=== PATIENT | female | born 1995 | race Caucasian/White ===

== ENCOUNTER 2018-05-03 09:30 | Emergency (ER) | payer OTHER ==
[2018-05-03 09:47] VITALS: BP 123/82
[2018-05-03] MEDS ORDERED: Ibuprofen TAB* 600 MG PO ONE (09:53)
--- NOTE | 2018-05-03 09:57 | UC ---
Dental HPI - HPI Summary HPI Summary: 23 yo F c/o R upper tooth pain for several days. tooth has turned black. sometimes drains blood if she pushes on it. no facial swelling or fevers. no breakage of tooth. able to eat w/o difficulty. took 500 mg tylenol this morning with moderate pain relief. family hx noncontributory - History of Current Complaint Chief Complaint: UCDentalProblem Stated Complaint: DENTAL PAIN Time Seen by Provider: 05/03/18 09:46 Hx Last Menstrual Period: 04/28/18 Pain Intensity: 7 - Allergies/Home Medications Allergies/Adverse Reactions: Allergies Allergy/AdvReac Type Severity Reaction Status Date / Time No Known Allergies Allergy Verified 05/03/18 09:40 Home Medications: Home Medications Acetaminophen [Acetaminophen Extra Strength] 500 mg PO ONCE 05/03/18 [History Confirmed 05/03/18] Norethindrone-E.estradiol-Iron [Loestrin Fe 07/21 1-20 mg-Mcg] 1 tab PO DAILY 08/19 [History Confirmed 05/03/18] PMH/Surg Hx/FS Hx/Imm Hx - Surgical History Surgical History: Yes Surgery Procedure, Year, and Place: LT KNEE - TORN MENISCUS 2012, REMOVED CYST FROM TAILBONE TAILBONE - Social History Alcohol Use: None Substance Use Type: None Smoking Status (MU): Light Every Day Tobacco Smoker Type: Cigarettes Amount Used/How Often: 1/2 PK DAILY Review of Systems ENT: Dental Pain All Other Systems Reviewed And Are Negative: Yes Physical Exam Triage Information Reviewed: Yes Appearance: Well-Appearing, No Pain Distress, Well-Nourished Vital Signs: Initial Vital Signs Temp 99 F 05/03/18 09:42 Pulse 94 05/03/18 09:42 Resp 18 05/03/18 09:42 BP 123/82 05/03/18 09:42 Pulse Ox 99 05/03/18 09:42 Vital Signs Reviewed: Yes Eyes: Positive: Conjunctiva Clear ENT: Positive: Pharynx normal, Dental tenderness - R upper posterior 2nd molar. Negative: Pharyngeal erythema, Nasal congestion Respiratory: Positive: No respiratory distress, No accessory muscle use Neurological: Positive: Alert, Muscle Tone Normal Psychological: Positive: Normal Response To Family, Age Appropriate Behavior Dental Complaint Course/Dx - Course Course Of Treatment: given ibuprofen - Differential Dx/Diagnosis Provider Diagnoses: dental caries Discharge - Sign-Out/Discharge Documenting (check all that apply): Patient Departure All imaging exams completed and their final reports reviewed: No Studies - Discharge Plan Condition: Stable Disposition: HOME Prescriptions: Penicillin VK TAB* [Penicillin VK 250 mg Tab*] 500 mg PO BID 7 Days #14 tab Patient Education Materials: Toothache (ED) Referrals: Pia Brooke NP [Primary Care Provider] - - Billing Disposition and Condition Condition: STABLE Disposition: Home
== END 2018-05-03 10:08 | disposition home or self-care (01) ==
LOC: UCEAST 09:30
DX: K02.9 Dental caries, unspecified (principal); F17.210 Nicotine dependence, cigarettes, uncomplicated
CPT/HCPCS: 99212; G0463

== ENCOUNTER 2018-05-26 17:26 | Emergency (ER) | payer OTHER ==
--- NOTE | 2018-05-26 17:51 | ED ---
HPI Chest Pain - HPI Summary HPI Summary: This patient is a 23 year old F brought in by EMS from [facility] to [facility] with a chief complaint of intermittent chest burning for over a month that was worse this morning. The patient rates the pain 3/10 in severity. Symptoms aggravated by drinking coffee. Symptoms alleviated by cold compresses. Pt has an appointment with here PCP but was googling sx tonight and became worried. [facility] saw EKG changes and suggested she come here. Not worse with exertion, movement , or inspiration. No cardiac hx. On amoxicillin for toothache Pt is on an oral contraceptive. - History of Current Complaint Chief Complaint: EDChestWallPain Time Seen by Provider: 05/26/18 17:42 Hx Obtained From: Patient Hx Last Menstrual Period: 05/25/18 Onset/Duration: Started Weeks Ago - more than 4, Still Present Timing: Intermittent Initial Severity: Mild Current Severity: Mild Pain Intensity: 3 Pain Scale Used: 0-10 Numeric Chest Pain Location: Diffuse Character: Burning Aggravating Factor(s): Other: - coffee Alleviating Factor(s): Other: - cold compress - Allergy/Home Medications Allergies/Adverse Reactions: Allergies Allergy/AdvReac Type Severity Reaction Status Date / Time No Known Allergies Allergy Verified 05/26/18 16:14 PMH/Surg Hx/FS Hx/Imm Hx Endocrine/Hematology History: Denies: Hx Diabetes, Hx Unexplained Bleeding, Hx Coagulopothy Cardiovascular History: Denies: Hx Angioplasty, Hx Cardiac Arrest, Hx Congestive Heart Failure, Hx Deep Vein Thrombosis Sensory History: Reports: Hx Contacts or Glasses Opthamlomology History: Reports: Hx Contacts or Glasses - Surgical History Surgery Procedure, Year, and Place: LT KNEE - TORN MENISCUS 2013, REMOVED CYST FROM TAILBONE TAILBONE Infectious Disease History: No Infectious Disease History: Denies: Traveled Outside the [place] in Last 30 Days - Family History Known Family History: Positive: None - Pt denies FMHX Negative: Renal Disease, Respiratory Disease, Seizure Disorder - Social History Lives: With Family Alcohol Use: Rare Substance Use Type: Reports: None Smoking Status (MU): Light Every Day Tobacco Smoker Type: Cigarettes Amount Used/How Often: 1/2 PK DAILY Review of Systems Negative: Fever Positive: Chest Pain All Other Systems Reviewed And Are Negative: Yes Physical Exam - Summary Physical Exam Summary: Appearance: Well appearing, no pain distress Skin: warm, dry, reflects adequate perfusion Head/face: normal Eyes: EOMI, VALERIO ENT: normal Neck: supple, non-tender Respiratory: CTA, breath sounds present Cardiovascular: RRR, pulses symmetrical Abdomen: non-tender, soft Musculoskeletal: normal, strength/ROM intact Neuro: normal, sensory motor intact, A&Ox3 Triage Information Reviewed: Yes Vital Signs On Initial Exam: Initial Vitals Temp Pulse Resp BP Pulse Ox 99.4 F 112 16 130/65 98 05/26/18 17:33 05/26/18 17:33 05/26/18 17:33 05/26/18 17:33 05/26/18 17:33 Vital Signs Reviewed: Yes Diagnostics - Vital Signs Vital Signs Temp Pulse Resp BP Pulse Ox 05/26/18 17:36 105 20 130/85 98 05/26/18 17:33 99.4 F 112 16 130/65 98 - Laboratory Result Diagrams: 05/26/18 18:04 05/26/18 18:04 Lab Statement: Any lab studies that have been ordered have been reviewed, and results considered in the medical decision making process. - Radiology CXR Radiology Interpretation Completed By: ED Physician Summary of Radiographic Findings: no acute disease. Pending official report. - EKG 1822 Cardiac Rate: NL EKG Rhythm: Sinus Rhythm - at 93 BPM Summary of EKG Findings: No acute changes Chest Pain Course/Dx - Course Assessment/Plan: This patient is a 23 year old F brought in by EMS from [facility] to [facility] with a chief complaint of intermittent chest burning for over a month that was worse this morning. An EKG reveals NSR. CXR reveals, no acute disease. Pending official report. Bloodwork obtained. Patient will be discharged with prescription for motrin and follow up from PCP. The patient is agreeable with this plan. - Chest Pain Differential Diagnosis/HQI/PQRI: Chest Wall, Lower Respiratory Infection - Diagnoses Provider Diagnoses: Atypical chest pain Discharge - Sign-Out/Discharge Documenting (check all that apply): Patient Departure - Discharge Plan Condition: Stable Disposition: HOME Prescriptions: Ibuprofen TAB* [Motrin TAB* 600 MG] 600 mg PO Q8H PRN #15 tab MDD 3 PRN Reason: Pain Patient Education Materials: Chest Pain (ED) Referrals: Pia Brooke NP [Primary Care Provider] - Additional Instructions: Follow up with your primary care physician in 1-3 days. RETURN TO THE EMERGENCY DEPARTMENT FOR CHANGING OR WORSENING SYMPTOMS. - Billing Disposition and Condition Condition: STABLE Disposition: Home - Attestation Statements Document Initiated by Stephanie: Yes Documenting Scribe: Ignacio Poole Provider For Whom Emilioe is Documenting (Include Credential): Jesus Wright MD Scribe Attestation: Ignacio Ruff , scribed for Jesus Wright MD on 05/26/18 at 1902. Scribe Documentation Reviewed: Yes Provider Attestation: The documentation as recorded by the Igancio bear accurately reflects the service I personally performed and the decisions made by me, Jesus Wright MD
[2018-05-26 18:16] LABS: ABS Basophils 0 10^3/ul (0-0.2); ABS Eosinophils 0 10^3/ul (0-0.6); ABS Monocytes 0.2 10^3/ul (0-0.8); ABS Neutrophils 7.1 10^3/ul (1.5-7.7); ABS Nucleated RBC 0 10^3/ul; Eosinophil % 0.2 % (0-6); Hematocrit 44 % (35-47); Hemoglobin 15.3 g/dl (12.0-16.0); Lymphocyte % 11.9 % (25-47); Mean Corpuscular HGB Conc 35 g/dl (31-36); Mean Corpuscular Hemoglobin 32 pg (27-31); Mean Corpuscular Volume 92 fL (80-97); Mean Platelet Volume 9.3 fL (7.4-10.4); Nucleated Red Blood Cells % 0; Platelet Count 144 10^3/ul (150-450); Red Blood Count 4.77 10^6/ul (4.00-5.40); Red Cell Distribution Width 13 % (10.5-15); White Blood Count 8.4 10^3/ul (3.5-10.8)
[2018-05-26 18:34] LABS: EGFR Non-African American 99.5 (>60)
[2018-05-26 18:54] VITALS: BP 125/81
== END 2018-05-26 18:54 | disposition home or self-care (01) ==
LOC: ED 17:26
DX: R07.89 Other chest pain (principal); F17.210 Nicotine dependence, cigarettes, uncomplicated
CPT/HCPCS: 36415; 71046; 80053; 84484; 85025; 85379; 85610; 85730; 93005; 99282

== ENCOUNTER 2018-05-28 18:25 | Emergency (ER) | payer OTHER ==
--- OUTSIDE RECORDS SUMMARY | 2018-05-28 18:36 | XMS REPORT | Continuity of Care Document ---
:1995 External Reference #:[id number] Author Name Pia Brooke N.P. Address [address] [place] [id number] Care Team Providers Name Role Phone Pia Brooke N.P. Care Team Information Recreational Director Unavailable Payers Type Date Identification Numbers Payment Provider Subscriber Effective: 2016 Policy Number: [id number] [facility] Bridgett Spears PayID: [id number] [address] [place] [address] PayID: [id number] [facility] Bridgett Spears [address] [place] [address] Effective: 2014 Policy Number: [id number] Medicaid ### >11 Bridgett Spears Expires: 2016 PayID: [id number] [address] [place] [address] Advance Directives Description No Information Available Problems Date Description Provider Status Onset: 08/25/2016 Cyst of ovary Pia Brooke N.PDereck Active Onset: 08/14/2017 Tobacco user Pia Brooke [place] Active Family History Date Family Member(s) Problem(s) Comments Father Good Health Mother Good Health Maternal Uncles pilonidal cyst remval Social History Type Date Description Comments Sex Unknown Lives With Boyfriend 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 2018 Fluconazole 02/26/ Hx Tablets 150mg 2tabs 1 by mouth Edwardo, 2018 - every day Mashelle, 05/27/ x 1 and N.P. 2018 repeat in 5 days x 1 Tramadol HCL 11/01/ Hx Tablets 50mg 24tabs 1 by mouth Edwardo, 2016 - every 6-8h Mashelle, 08/25/ as needed N.P. 2017 pain Zithromax Z-True 04/20/ Hx Tablets 250mg 1tabs as Edwardo, 2014 - directed Mashelle, 11/01/ N.P. 2015 Cheratussin ac 04/20/ Hx Syrup 100-10mg/5 236ml 1 teaspoon Edwardo, 2014 - ML every 4-6 Mashelle, 11/01/ h as N.P. 2016 needed cough Work Note 04/20/ Hx no work Edwardo, 2014 - today for Mashelle, 11/01/ medical N.P. 2016 reasons Azithromycin 11/07/ Hx Tablets 250mg 6tabs 2 po day Edwardo, 2013 - one then 1 Mashelle, 04/08/ po qd x 4 N.P. 2013 days Cheratussin ac 11/07/ Hx Syrup 100-10mg/5 236ml 1 teaspoon Edwardo, 2013 - ML every 4-6 Mashelle, 04/08/ h prn N.P. 2013 cough Work Note Hx no work Edwardo, 2013 - 11/07/13-5/ Mashelle, for N.P. 2013 medical reasons Ibuprofen 01/09/ Hx Tablets 600mg 30tabs 1 po qid Edwardo, 2012 - with food Mashelle, 04/08/ N.P. 2013 Bactrim DS 08/13/ Hx Tablets 800-160mg 10tabs 1 po bid x Edwardo, 2012 - 5 days Mashelle, 11/07/ N.P. 2014 Hydrocodone/Kirk 05/29/ Hx Tablets 5-325mg 24tabs 1 po q Edwardo, taminophen 2011 - 4-6h prn Mashelle, 11/07/ pain N.P. 2013 Acetaminophen/C 02/19/ Hx Tablets 300-30mg 12tabs 1-2 po q Edwardo, odeine #3 2011 - 4-6 hours Mashelle, 05/28/ prn pain N.P. 2011 Ortho Evra 11/21/ Hx Patches 150-20mcg/ 18unit apply Edwardo, 2011 - Weekly 24HR s patch Mashelle, 02/15/ every week N.P. 2011 as directed for Metronidazole 08/24/ Hx Tablets 500mg 14tabs 1 po bid x Edwardo, 2011 - 7 days Mashelle, 02/15/ N.P. 2011 Diflucan 08/24/ Hx Tablets 100mg 11tabs 2 tabs day Edwardo, 2011 - one then 1 Mashelle, 02/15/ po q day x N.P. 2011 10 days Clindamycin HCL 08/01/ Hx Capsules 300mg 28caps 1 po q 6 h Edwardo, 2011 - x 7 days Mashelle, 08/11/ N.P. 2011 School Note Hx patient Edwardo, 2010 - was seen maria r, in our N.P. 2012 office today for medical reasons Metrogel-Vagina 10/14/ Hx Gel 0.75% 70G one appl deb Brooke 2010 - per vagina Mashelle, 08/01/ qhs x 5d N.P. 2011 Apri 06/09/ Hx Tablets 0.15-30mg- 28tabs 1 po qd Edwardo, 2009 - mcg Mashelle, 02/15/ N.P. 2011 Aviane 04/25/ Hx Tablets 0.1-20mg-m 1pack 1 po qd Edwardo, 2009 - cg Mashelle, 06/09/ N.P. 2009 Keflex 04/25/ Hx Capsules 500mg 28caps 1 po qid x Edwardo, 2009 - 7 days Mashelle, 09/30/ N.P. 2010 Tylenol/Codeine 04/25/ Hx Tablets 300-30mg 24tabs 1 -2 po q Edwardo, #3 2009 - 4-6 hours Mashelle, 09/30/ prn pain N.P. 2010 School Note 04/25/ Hx no sports Edwardo, 2009 - or gym for Mashelle, 09/30/ 2 weeks N.P. 2010 Medications Administered in Office Medication Date Status Form Strength Qnty SIG Indications Ordering Provider PPD Administered Injection Edwardo, 1 Jodie Palacio Immunizations CPT Code Status Date Vaccine Lot # [id number] Given 01/15/2018 Tdap (Adacel) Ages 7 And Above Only [id number] Given 01/15/2018 Tdap (Adacel) Ages 7 And Above Only 40416 Given 04/08/2014 Afluria Or Fluvirin Flu Vac Intramuscular [id number] 63890 Given 02/15/2007 Tdap (Adacel) Ages 7 And Above Only [id number] 94481 Given 02/15/2007 HPV Vaccine (Gardasil) 3 Dose Schedule [id number] 19653 Given 11/22/1998 IPV / Poliomyelitis Immunization 75449 Given 11/22/1998 MMR Virus Immunization 20284 Given 11/22/1998 DTP Immunization 06300 Given 02/04/1996 Hib ACTHiB Vaccine 4 Dose Schedule 82348 Given 02/04/1996 DTP Immunization 42973 Given 02/09/1995 Hepatitis B Vac Ped/Adolescent 3 Dose Schedule 23514 Given 02/03/1995 MMR Virus Immunization 42335 Given 1994 IPV / Poliomyelitis Immunization 10684 Given 1994 DTP Immunization 04753 Given 1994 Hib ACTHiB Vaccine 4 Dose Schedule 28386 Given 1994 Hepatitis B Vac Ped/Adolescent 3 Dose Schedule 38619 Given 1994 IPV / Poliomyelitis Immunization 19935 Given 1994 DTP Immunization 24355 Given 1994 Hib ACTHiB Vaccine 4 Dose Schedule 13529 Given 1994 Hepatitis B Vac Ped/Adolescent 3 Dose Schedule 97691 Given 1994 IPV / Poliomyelitis Immunization 99432 Given 1994 DTP Immunization 08734 Given 1994 Hib ACTHiB Vaccine 4 Dose Schedule 56880 Refused 04/21/2018 HPV Vaccine (Gardasil) 3 Dose Schedule 45108 Refused 04/21/2018 Influenza Vac, 3 Yrs & Older, Quadrivalent, Split, Im Use Vital Signs Date Vital Result Comment 05/27/2018 11:23am Body Temperature 98.6 F Weight 115.00 lb Heart Rate 111 /min BP Systolic 120 mmHg BP Diastolic 86 mmHg O2 % BldC Oximetry 98 % 05/20/2018 8:00am Body Temperature 99.3 F Weight 119.50 lb Heart Rate 99 /min BP Systolic 98 mmHg BP Diastolic 62 mmHg O2 % BldC Oximetry 97 % 02/26/2018 12:03pm Body Temperature 99.0 F Weight 107.00 lb Heart Rate 96 /min BP Systolic 102 mmHg BP Diastolic 71 mmHg O2 % BldC Oximetry 99 % 02/21/2018 10:04am Body Temperature 98.1 F Weight 107.25 lb Heart Rate 98 /min BP Systolic 93 mmHg BP Diastolic 72 mmHg Height 65 inches 5'5" O2 % BldC Oximetry 99 % BMI (Body Mass Index) 17.8 kg/m2 02/11/2018 11:37am Body Temperature 98.4 F Weight 109.00 lb Heart Rate 87 /min BP Systolic 103 mmHg BP Diastolic 74 mmHg O2 % BldC Oximetry 99 % 01/15/2018 1:36pm Body Temperature 99.0 F Weight 113.50 lb Heart Rate 76 /min BP Systolic 116 mmHg BP Diastolic 77 mmHg O2 % BldC Oximetry 99 % 11/09/2017 10:19am Body Temperature 98.8 F Weight 113.00 lb Heart Rate 88 /min BP Systolic 114 mmHg BP Diastolic 82 mmHg Height 65 inches 5'5" O2 % BldC Oximetry 98 % BMI (Body Mass Index) 18.8 kg/m2 08/14/2017 11:13am Body Temperature 98.8 F Weight 115.00 lb Heart Rate 85 /min BP Systolic 124 mmHg BP Diastolic 78 mmHg O2 % BldC Oximetry 98 % 08/25/2016 9:49am Body Temperature 98.2 F Weight 113.00 lb Heart Rate 96 /min BP Systolic 117 mmHg BP Diastolic 84 mmHg Height 65 inches 5'5" O2 % BldC Oximetry 97 % BMI (Body Mass Index) 18.8 kg/m2 12/22/2015 8:13am Body Temperature 98.8 F Weight 114.00 lb Heart Rate 97 /min BP Systolic 108 mmHg BP Diastolic 69 mmHg O2 % BldC Oximetry 99 % 11/23/2015 8:30am Body Temperature 98.8 F Weight 112.50 lb Heart Rate 88 /min BP Systolic 112 mmHg BP Diastolic 78 mmHg O2 % BldC Oximetry 99 % 11/02/2015 11:20am Body Temperature 99.0 F Weight 113.38 lb Heart Rate 107 /min BP Systolic 115 mmHg BP Diastolic 70 mmHg O2 % BldC Oximetry 99 % 04/20/2015 10:46am Body Temperature 98.6 F Weight 112.12 lb Heart Rate 104 /min BP Systolic 117 mmHg BP Diastolic 76 mmHg O2 % BldC Oximetry 98 % 04/08/2014 10:54am Body Temperature 98.3 F Weight 118.12 lb Heart Rate 90 /min BP Systolic 108 mmHg BP Diastolic 66 mmHg 11/07/2013 10:43am Body Temperature 98.4 F Weight 119.00 lb Heart Rate 110 /min BP Systolic 72 mmHg O2 % BldC Oximetry 97 % 06/03/2013 8:15am Body Temperature 96.3 F Weight 124.50 lb Heart Rate 110 /min BP Systolic 102 mmHg BP Diastolic 68 mmHg O2 % BldC Oximetry 99 % 01/09/2013 2:05pm Body Temperature 96.4 F Weight 122.00 lb Weight Percentile 42nd Heart Rate 99 /min BP Systolic 100 mmHg BP Diastolic 60 mmHg O2 % BldC Oximetry 96 % 08/13/2012 12:53pm Body Temperature 98.3 F Weight 130.00 lb Weight Percentile 60th Heart Rate 120 /min BP Systolic 100 mmHg BP Diastolic 60 mmHg O2 % BldC Oximetry 98 % 06/28/2012 11:27am Body Temperature 97.7 F Weight 132.00 lb Weight Percentile 64th Heart Rate 78 /min BP Systolic 102 mmHg BP Diastolic 62 mmHg O2 % BldC Oximetry 99 % 05/28/2012 2:08pm Body Temperature 98.0 F Weight 126.50 lb Weight Percentile 54th Heart Rate 93 /min BP Systolic 104 mmHg BP Diastolic 68 mmHg O2 % BldC Oximetry 99 % 02/16/2012 10:53am Body Temperature 98.2 F Weight 126.50 lb Weight Percentile 56th Heart Rate 97 /min BP Systolic 104 mmHg BP Diastolic 62 mmHg O2 % BldC Oximetry 99 % 11/22/2011 3:23pm Body Temperature 97.8 F Weight 140.00 lb Weight Percentile 76th Heart Rate 97 /min BP Systolic 130 mmHg BP Diastolic 70 mmHg O2 % BldC Oximetry 99 % 08/21/2011 8:18am Body Temperature 98.0 F Weight 142.25 lb Weight Percentile 79th Heart Rate 94 /min BP Systolic 105 mmHg BP Diastolic 64 mmHg O2 % BldC Oximetry 99 % 08/11/2011 8:43am Body Temperature 98.7 F Weight 145.50 lb Weight Percentile 82nd Heart Rate 94 /min BP Systolic 110 mmHg BP Diastolic 65 mmHg O2 % BldC Oximetry 99 % 08/01/2011 8:15am Body Temperature 96.4 F Weight 141.00 lb Weight Percentile 78th Heart Rate 99 /min BP Systolic 116 mmHg BP Diastolic 77 mmHg 05/11/2011 9:10am Body Temperature 97.6 F Weight 136.00 lb Weight Percentile 73rd Heart Rate 100 /min BP Systolic 111 mmHg BP Diastolic 69 mmHg O2 % BldC Oximetry 95 % 05/01/2011 8:53am Body Temperature 98.2 F Weight 146.00 lb Weight Percentile 83rd Heart Rate 87 /min O2 % BldC Oximetry 99 % 04/14/2011 8:29am Body Temperature 98.1 F Weight 146.00 lb Weight Percentile 83rd Heart Rate 95 /min BP Systolic 100 mmHg BP Diastolic 70 mmHg O2 % BldC Oximetry 95 % 04/04/2011 8:40am Body Temperature 98.2 F Weight 145.00 lb Weight Percentile 82nd Heart Rate 100 /min BP Systolic 110 mmHg BP Diastolic 60 mmHg O2 % BldC Oximetry 93 % 03/24/2011 8:42am Body Temperature 97.4 F Weight 146.00 lb Weight Percentile 83rd Heart Rate 107 /min BP Systolic 104 mmHg BP Diastolic 64 mmHg O2 % BldC Oximetry 98 % 03/20/2011 8:25am Body Temperature 98.2 F Weight 144.00 lb Weight Percentile 81st BP Systolic 100 mmHg BP Diastolic 70 mmHg Height 65 inches 5'5" Height Percentile 63 % O2 % BldC Oximetry 96 % BMI (Body Mass Index) 24.0 kg/m2 Body Mass Index Percentile 79 % 03/15/2011 2:59pm Body Temperature 98.2 F Weight 146.00 lb Weight Percentile 83rd Heart Rate 107 /min BP Systolic 102 mmHg BP Diastolic 60 mmHg O2 % BldC Oximetry 97 % 09/30/2010 11:10am Weight 136.00 lb Weight Percentile 75th Heart Rate 80 /min BP Systolic 104 mmHg BP Diastolic 70 mmHg Respiratory Rate 20 /min Height 63 inches 5'3" Height Percentile 33 % O2 % BldC Oximetry 97 % BMI (Body Mass Index) 24.1 kg/m2 Body Mass Index Percentile 81 % 04/27/2010 12:27pm Body Temperature 98.6 F Weight 140.00 lb Weight Percentile 80th Heart Rate 103 /min BP Systolic 102 mmHg BP Diastolic 70 mmHg Respiratory Rate 20 /min O2 % BldC Oximetry 95 % 04/25/2010 11:01am Body Temperature 98.4 F Weight 140.00 lb Weight Percentile 80th Heart Rate 118 /min BP Systolic 100 mmHg BP Diastolic 60 mmHg Respiratory Rate 20 /min O2 % BldC Oximetry 99 % Results Test Date Facility Test Result H/L Range Note Laboratory test [facility] TSH 1.57 uIU/mL 0.35-4.94 1 finding 8 Laboratory test [facility] Urine Microbiology res 2 finding 8 Culture <SEE NOTE> Comprehensive Met [facility] Sodium 138 mmol/L 135-146 3, 4 Panel-FCMG 8 Potassium 4.2 mmol/L 3.5-5.2 Chloride# 106 mmol/L 97-110 5 Carbon Dioxide 22 mmol/L Low 24-34 Glucose 92 mg/dL 70-105 BUN 6 mg/dL 6-26 Creatinine 0.6 mg/dL 0.5-1.4 Calcium 8.9 mg/dL 8.5-10.2 Total Protein 6.4 g/dL 6.0-8.0 Albumin 4.1 g/dL 3.6-4.9 Globulin 2.3 g/dL 2.0-3.5 A/G Ratio 1.8 Ratio 1.0-2.2 Total Bilirubin 0.3 mg/dL 0.1-1.3 Alkaline Phosphatase 43 U/L 24-140 Alt 6 U/L 3-42 Ast 9 U/L 8-42 Beatris Egfr >60 >60 6 Non Beatris Egfr >60 >60 7 Anion Gap 10 mmol/L 5-15 8 CBC with Auto Diff-fcmg 02/11/2018 [facility] WBC 7.6 K/uL 4.1-11.0 RBC 3.77 M/uL Low 4.00-5.40 Hemoglobin 11.9 gm/dL Low 12.0-16.0 Hematocrit 34.3 % Low 36.0-47.0 MCV 90.9 fL 80.0-97.0 MCH 31.6 pg 27.0-32.0 MCHC 34.7 g/dL 32.0-36.0 RDW 12.9 % 11.5-14.5 PLT Count 293 K/ul 140-400 MPV 8.9 FL 7.1-10.7 Neutrophil 71.1 % 35.0-75.0 Lymphocyte 19.7 % 16.0-52.0 Monocyte 7.7 % 2.0-10.0 Eosinophil 0.8 % 0.0-5.0 Basophil 0.7 % 0.0-4.0 Abs Neutrophils 5.4 K/uL 2.1-8.0 Abs Lymphocytes 1.5 K/uL 0.8-5.5 Abs Monocytes 0.6 K/uL 0.1-1.0 Abs Eosinophils 0.1 K/uL 0.0-0.5 Abs Basophils 0.1 K/uL 0.0-0.3 Laboratory test 02/11/2018 [facility] Magnesium 2.2 mg/dL 1.5-2.7 finding Protime 02/03/2018 [facility] Protime 15.6 seconds High 12.0-14.4 9 (315)- - Inr 1.2 High 0.9-1.1 10 Laboratory test 02/03/2018 [facility] Act Partial 27.0 seconds N 23.4-35.0 finding (315)- - Thrombo Time Aot Request 02/03/2018 [facility] Aot Request Test(s) added 11 (315)- - Tests to be added: crp Basic Metabolic Panel 02/03/2018 [facility] Glucose 130 mg/dL High 74-106 (315)- - BUN 4 mg/dL Low 7-18 Creatinine 0.6 mg/dL N 0.6-1.3 Glom Filtration Rate, Estimate >60 mL/min >60 If >60 mL/min >60 12 BUN/Creat 6.6 ratio Sodium 143 mmol/L N 136-145 Potassium 3.4 mmol/L Low 3.5-5.1 Chloride 112 mmol/L High 98-107 Carbon Dioxide 23 mmol/L N 21-32 Anion Gap 8 mEq/L N 8-16 Calcium 7.9 mg/dL Low 8.5-10.1 Laboratory test 02/03/2018 [facility] Magnesium 1.7 mg/ dL Low 1.8-2.4 finding (315)- - C-Reactive Protein,Quant 6.2 mg/L High <3.0 CBC 02/03/2018 [facility] White Blood Count 12.2 K/uL High 3.1-10.7 (315)- - Red Blood Count 3.50 M/uL Low 3.90-5.40 Hemoglobin 11.3 gm/dL Low 11.6-15.8 Hematocrit 32.3 % Low 36.0-46.1 Mean Cell Volume 92.3 fl N 80.9-99.0 Mean Corpuscular HGB 32.3 pg N 25.9-32.7 Mean Corpuscular HGB Conc 35.0 g/dL High 30.8-34.3 Platelet Count 113 K/uL Low 155-360 Red Cell Distri Width %CV 12.3 % N 11.7-14.4 Mean Platelet Volume 11.6 fL N 8.9-12.4 Lactic Acid 02/02/2018 [facility] Lactic Acid 0.9 mmol/L N 0.4-1.9 (315)- - Lab Reflex >2.0 for Sepsis? Y Aot Request 02/02/2018 [facility] Aot Request Test(s) added 13 (315)- - Tests to be added: CRP Laboratory test 02/01/2018 [facility] Urine Culture NO GROWTH: 14 finding (315)- - FINAL <SEE NOTE> Urinalysis With 02/01/2018 [facility] Urine Color YELLOW Yellow 15 Microscopic (315)- - Urine Clarity SL CLOUDY Clear Urine Glucose - Dipstick NEGATIVE mg/dL Negative Urine Bilirubin - Dipstick NEGATIVE Negative Urine Ketone NEGATIVE mg/dL Negative Urine Specific [place] 1.025 N 1.010-1.030 Urine Blood NEGATIVE Negative Urine PH 6.0 Low 6.5-7.5 Urine Protein - Dipstick NEGATIVE mg/dL Negative Urine Urobilinogen - Dipstick 0.2 E.U./dL N 0.2-1.0 Urine Nitrite - Dipstick NEGATIVE Negative Urine Leuk Esterase MODERATE Abnormal Negative Urine RBC 0-2 rbc/hpf 0-2 Urine WBC 20-30 wbc/hpf High 0-7 Urine Epithelial Cells MANY /lpf None Seen 16 Urine Bacteria MODERATE Abnormal None Seen Urine Amorph Sediment SMALL Negative Source: URINE, CLEAN CAT <SEE NOTE> 17 Laboratory test finding 02/01/2018 [facility] Lipase 207 U/L N 56-289 (315)- - HCG,Serum (Qualitative) NEGATIVE (Negative) 18 C-Reactive Protein,Quant < 2.9 mg/L <3.0 Comprehensive Metabolic 02/01/2018 [facility] Glucose 122 mg/dL High 74-106 Panel (315)- - BUN 8 mg/dL N 7-18 Creatinine 0.8 mg/dL N 0.6-1.3 Glom Filtration Rate, Estimate >60 mL/min >60 If >60 mL/min >60 19 BUN/Creat 10.0 ratio Sodium 143 mmol/L N 136-145 Potassium 3.5 mmol/L N 3.5-5.1 Chloride 110 mmol/L High 98-107 Carbon Dioxide 26 mmol/L N 21-32 Anion Gap 7 mEq/L Low 8-16 Calcium 9.0 mg/dL N 8.5-10.1 Total Protein 7.5 g/dL N 6.4-8.2 Albumin 4.2 g/dL N 3.4-5.0 Globulin 3.3 g/dL N 1.9-4.3 Alb/Glob 1.3 ratio Bilirubin,Total 0.2 mg/dL N 0.2-1.0 Sgot/Ast 11 U/L Low 15-37 20 SGPT/Alt 14 U/L N 12-78 Alkaline Phosphatase 52 U/L N 45-117 CBS W/Automated 02/01/2018 [facility] White Blood 11.6 K/ uL High 3.1-10.7 Diff (315)- - Count Red Blood Count 4.79 M/uL N 3.90-5.40 Hemoglobin 15.5 gm/dL N 11.6-15.8 Hematocrit 43.2 % N 36.0-46.1 Mean Cell Volume 90.2 fl N 80.9-99.0 Mean Corpuscular HGB 32.4 pg N 25.9-32.7 Mean Corpuscular HGB Conc 35.9 g/dL High 30.8-34.3 Platelet Count 161 K/uL N 155-360 Red Cell Distri Width SD 40.6 fl N 3-47 Red Cell Distri Width %CV 12.5 % N 11.7-14.4 Mean Platelet Volume 11.1 fL N 8.9-12.4 Neut% 58.9 % N 40.4-72.8 Lymph % 32.7 % N 20.0-42.0 [place] % 6.5 % N 4.3-13.2 Eo% 1.6 % N 0.0-6.6 Bas% 0.3 % N 0.0-1.1 Neut# 6.83 K/uL N 1.8-7.0 Lymph # 3.79 K/uL N 1.0-4.0 [place] # 0.75 K/uL N 0.3-0.9 Eos # 0.19 K/uL N 0.0-0.5 Baso # 0.03 K/uL N 0.0-0.1 CBS W/Automated Diff 08/06/2017 [facility] White Blood 7.2 K/uL N 3.1-10.7 21 (315)- - Count Red Blood Count 4.60 M/uL N 3.90-5.40 Hemoglobin 15.1 gm/dL N 11.6-15.8 Hematocrit 41.7 % N 36.0-46.1 Mean Cell Volume 90.7 fl N 80.9-99.0 Mean Corpuscular HGB 32.8 pg High 25.9-32.7 Mean Corpuscular HGB Conc 36.2 g/dL High 30.8-34.3 Platelet Count 112 K/uL Low 155-360 Red Cell Distri Width SD 41.9 fl N 3-47 Red Cell Distri Width %CV 12.8 % N 11.7-14.4 Mean Platelet Volume 11.1 fL N 8.9-12.4 Neut% 68.9 % N 40.4-72.8 Lymph % 22.6 % N 20.0-42.0 [place] % 6.7 % N 4.3-13.2 Eo% 1.5 % N 0.0-6.6 Bas% 0.3 % N 0.0-1.1 Neut# 4.93 K/uL N 1.8-7.0 Lymph # 1.62 K/uL N 1.0-4.0 [place] # 0.48 K/uL N 0.3-0.9 Eos # 0.11 K/uL N 0.0-0.5 Baso # 0.02 K/uL N 0.0-0.1 Comprehensive Metabolic 08/06/2017 [facility] Glucose 93 mg/dL N 74-106 Panel (315)- - BUN 11 mg/dL N 7-18 Creatinine 0.8 mg/dL N 0.6-1.3 Glom Filtration Rate, Estimate >60 mL/min >60 If >60 mL/min >60 22 BUN/Creat 13.7 ratio Sodium 140 mmol/L N 136-145 Potassium 3.5 mmol/L N 3.5-5.1 Chloride 110 mmol/L High 98-107 Carbon Dioxide 23 mmol/L N 21-32 Anion Gap 7 mEq/L Low 8-16 Calcium 8.7 mg/dL N 8.5-10.1 Total Protein 7.2 g/dL N 6.4-8.2 Albumin 4.1 g/dL N 3.4-5.0 Globulin 3.1 g/dL N 1.9-4.3 Alb/Glob 1.3 ratio Bilirubin,Total 0.3 mg/dL N 0.2-1.0 Sgot/Ast 5 U/L Low 15-37 23 SGPT/Alt 15 U/L N 12-78 Alkaline Phosphatase 49 U/L N 45-117 Laboratory test finding 08/06/2017 [facility] Lipase 163 U/L N 56-289 (315)- - HCG,Serum (Qualitative) NEGATIVE (Negative) 24 Urinalysis With 08/06/2017 [facility] Urine Color YELLOW Yellow Microscopic (315)- - Urine Clarity SL CLOUDY Clear Urine Glucose - Dipstick NEGATIVE mg/dL Negative Urine Bilirubin - Dipstick NEGATIVE Negative Urine Ketone NEGATIVE mg/dL Negative Urine Specific [place] >=1.030 N 1.010-1.030 Urine Blood NEGATIVE Negative Urine PH 5.5 Low 6.5-7.5 Urine Protein - Dipstick NEGATIVE mg/dL Negative Urine Urobilinogen - Dipstick 0.2 E.U./dL N 0.2-1.0 Urine Nitrite - Dipstick NEGATIVE Negative Urine Leuk Esterase TRACE Abnormal Negative Urine RBC NONE SEEN rbc/hpf 0-2 Urine WBC 10-20 wbc/hpf High 0-7 Urine Epithelial Cells MANY /lpf None Seen 25 Urine Mucus SMALL None Seen Source: URINE, CLEAN CAT <SEE NOTE> 26 Urine Culture 08/06/2017 [facility] Urine Culture URETHRAL JONELLE (315)- - Quantity 10,000 - 50,000 <SEE NOTE> 27 C Diff Toxin B/PCR-RL 08/28/2016 [facility] Specimen Description STOOL C Diff Toxin B NEGATIVE (Neg) 027 Nap1 B1 NEGATIVE (Neg) Comment NOTE: IF REFLEX <SEE NOTE> 28 Crypto/Giard Antigen 08/28/2016 [facility] Crypto/Giard Antigen SEE NOTE 29 Stool Panel 08/28/2016 [facility] Enteric Pathogens By PCR SEE NOTE 30 Giard/Cryptosp Exam SEE NOTE 31 Lactoferrin,Fecal NEGATIVE (Neg) 32 Laboratory test 11/02/2015 [facility] Urine Microbiology res 33 finding Culture <SEE NOTE> Urine HCG 07/24/2014 [facility] Urine HCG NEGATIVE Negative 34 (Qualitative) (315)- - (Qualitative ) Laboratory test 06/03/2013 [facility] Urine Microbiology res 35 finding Culture <SEE NOTE> Urine Culture 03/15/2013 [facility] Urine See Note 36 (315)- - Culture Urine Screen 03/15/2013 [facility] Urine Screen See Note 37 (315)- - Urine HCG 03/15/2013 [facility] Urine HCG NEGATIVE Negative 38 (Qualitative) (315)- - (Qualitative ) Urinalysis With 03/15/2013 [facility] Urine Color YELLOW Yellow Microscopic (315)- - Urine Clarity CLEAR Clear Urine Glucose - Dipstick NEGATIVE mg/dL Negative Urine Bilirubin - Dipstick NEGATIVE Negative Urine Ketone NEGATIVE mg/dL Negative Urine Specific [place] <=1.005 Low 1.010-1.030 Urine Blood TRACE Negative Urine PH 5.5 Low 6.5-7.5 Urine Protein - Dipstick NEGATIVE mg/dL Negative Urine Urobilinogen - Dipstick 0.2 E.U./dL 0.2-1.0 Urine Nitrite - Dipstick NEGATIVE Negative Urine Leuk Esterase MODERATE High Negative Urine RBC 0-2 rbc/hpf 0-7 Urine WBC 30-50 wbc/hpf High 0-7 Urine Epithelial Cells FEW NONESEEN/lpf Urine Bacteria FEW NONESEEN Laboratory test 03/15/2013 [facility] Culture If See Note 39 finding (315)- - Indicated Comment Laboratory test 01/09/2013 [facility] Urine Culture Microbiology res 40 finding <SEE NOTE> Laboratory test 08/13/2012 [facility] Urine Culture Microbiology res 41 finding <SEE NOTE> Liver Function 05/26/2012 [facility] Total Protein 7.0 g/ dL 6.3-8 Tests (315)- - .0 Albumin 3.7 g/dL 3.5-5.0 Globulin 3.3 g/dL 1.9-4.3 Alb/Glob 1.1 ratio Bilirubin,Total 0.2 mg/dL 0.2-1.2 Bilirubin,Direct < 0.1 mg/dL Low 0.1-0.4 Bilirubin,Indirect 0.1 mg/dL 0.0-0.9 Sgot/Ast 10 U/L Low 16-40 SGPT/Alt 18 U/L Low 30-65 Alkaline Phosphatase 67 U/L 50-136 Basic Metabolic Panel 05/26/2012 [facility] Glucose 98 mg /dL 76-115 (315)- - BUN 12 mg/dL 5-23 Creatinine 0.9 mg/dL 0.5-1.4 Glom Filtration Rate, Estimate >60 mL/min >60 If >60 mL/min >60 42 BUN/Creat 13.3 ratio Sodium 142 mmol/L 136-145 Potassium 3.6 mmol/L 3.5-5.1 Chloride 110 mmol/L High 98-107 Carbon Dioxide 24 mEq/L 18-29 Anion Gap 12 mEq/L 8-16 Calcium 9.0 mg/dL 8.5-10.1 Laboratory test 05/26/2012 [facility] Lipase 123 U/L 28-380 finding (315)- - CBC W/Automated 05/26/2012 [facility] White Blood 7.8 K/ uL 3.1-10.7 Diff (315)- - Count Red Blood Count 4.50 M/uL 3.90-5.40 Hemoglobin 14.4 gm/dL 11.6-15.8 Hematocrit 39.8 % 36.0-46.1 Mean Cell Volume 88.4 fl 80.9-99.0 Mean Corpuscular HGB 32.0 pg 25.9-32.7 Mean Corpuscular HGB Conc 36.2 g/dL High 30.8-34.3 Platelet Count 131 K/uL Low 155-360 Red Cell Distri Width SD 38.7 fl 3-47 Red Cell Distri Width %CV 12.1 % 11.7-14.4 Mean Platelet Volume 11.3 fL 8.9-12.4 Neut% 68.6 % High 28.0-68.0 Lymph % 23.9 % 17.0-46.1 [place] % 5.8 % 4.3-13.2 Eo% 1.4 % 0.0-6.6 Bas% 0.3 % 0.0-1.1 Neut# 5.37 K/uL 1.0-7.0 Lymph # 1.87 K/uL 0.8-3.4 [place] # 0.45 K/uL 0.0-0.6 Eos # 0.11 K/uL 0.0-0.5 Baso # 0.02 K/uL 0.0-0.1 Laboratory test 05/26/2012 [facility] Urine HCG NEGATIVE Negative 43 finding (315)- - (Qualitative) Urine Screen 05/26/2012 [facility] Urine Color YELLOW Yellow (315)- - Urine Clarity CLEAR Clear Urine Glucose - Dipstick NEGATIVE mg/dL Negative Urine Bilirubin - Dipstick NEGATIVE Negative Urine Ketone NEGATIVE mg/dL Negative Urine Specific [place] 1.010 1.010-1.030 Urine Blood NEGATIVE Negative Urine PH 8.0 High 6.5-7.5 Urine Protein - Dipstick NEGATIVE mg/dL Negative Urine Urobilinogen - Dipstick 0.2 E.U./dL 0.2-1.0 Urine Nitrite - Dipstick NEGATIVE Negative Urine Leuk Esterase NEGATIVE Negative Affirm 08/21/2011 [facility] Trichomonas Vaginalis Negative Negative Gardnerella Vaginalis Positive Abnormal Negative Марина Species Positive Abnormal Negative Laboratory test finding 08/01/2011 [facility] Pap SEE NOTE 44 Laboratory test finding 08/01/2011 [facility] GC by Dna Probe NEGATIVE Negative Urine Culture Microbiology res <SEE NOTE> 45 Affirm 08/01/2011 [facility] Trichomonas Vaginalis Negative Negative Gardnerella Vaginalis Positive Abnormal Negative Марина Species Negative Negative Laboratory test 03/20/2011 [facility] Rubella Igg AB 39.6 IU/mL 46, 47 finding Laboratory test 03/20/2011 [facility] Measles Igg AB 1.99 ELFA 48 finding Laboratory test 09/30/2010 [facility] 49 finding [phone] Allia <SEE NOTE> Affirm 09/30/2010 [facility] Trichomonas Negative Negative Vaginalis Gardnerella Vaginalis Positive Abnormal Negative Марина Species Negative Negative Laboratory test finding 09/30/2010 [facility] GC by Dna Probe NEGATIVE Negative Urine Culture Microbiology res <SEE NOTE> 50 Laboratory test finding 09/30/2010 [facility] Pap SEE NOTE 51 HPV Negative Negative 52 Wound Culture - 04/25/2010 [facility] (Do not Use) Wound Culture - (SEE NOTE) 53 [place] [facility] [place] [address] [phone] Specimen Description - LA N/A Special Requests - LA N/A Result - LA N/A Report Status - LA N/A 1 This sample is drawn by:dayna/[email or web address] 2 Microbiology results SOURCE Random urine FINAL RESULT No growth 3 This sample is drawn by:kait/[email or web address] 4 Updated reference range on new analyzer 5 Updated reference range on new analyzer 6 Concerning GFR Guidelines for Americans: Normal function or mild renal disease, if clinically at risk: >/=60 mL/min Moderately decreased: 30-59 Severely decreased: 15-29 Renal failure: <15 7 Concerning GFR Guidelines: Normal function or mild renal disease, if clinically at risk: >/=60 mL/min Moderately decreased: 30-59 Severely decreased: 15-29 Renal failure: <15 Glomerular Filtration Rate (GFR) is estimated based on the MDRD equation, which assumes a steady state for creatinine as recommended by the National Kidney Disease Education Program in conjunction with the National Institutes of Health and the National Kidney Foundation. Clinical conditions in which it may be necessary to measure GFR by using clearance methods include extremes of age and body size, severe malnutrition or obesity, diseases of skeletal muscle, paraplegia or quadriplegia, vegetarian diet, rapidly changing kidney function, and calculation of the dose of potentially toxic drugs that are excreted by the kidneys. 8 Updated Reference Range 9 ABDOM PAIN, UTI 10 THERAPEUTIC INR RANGE: 2.0 - 3.0 DVT, Pulmonary embolus, prophylaxis against venous thrombosis or systemic embolization in high risk patients. 2.5 - 3.5 Mechanical heart valves 11 Tests: crp Instructions: 12 Note: Persistent reduction for 3 months or more in an eGFR <60 mL/min/1.73 m2 defines CKD. Patients with eGFR values >/=60 mL/min/1.73 m2 may also have CKD if evidence of persistent proteinuria is present. The original MDRD equation for estimated GFR is not valid for patients less than 18 years of age. Additional information may be found at [email or web address]. 13 Tests: CRP Instructions: 14 NO GROWTH: FINAL REPORT 15 SEVERE ABD PAIN L SIDE 16 POSSIBLE UROGENITAL CONTAMINATION. 17 URINE, CLEAN CATCH 18 Method: Quidel QuickVue One-Step Immunoassay 19 Note: Persistent reduction for 3 months or more in an eGFR <60 mL/min/1.73 m2 defines CKD. Patients with eGFR values >/=60 mL/min/1.73 m2 may also have CKD if evidence of persistent proteinuria is present. The original MDRD equation for estimated GFR is not valid for patients less than 18 years of age. Additional information may be found at [email or web address]. 20 Values below the stated reference ranges of AST and ALT can be seen in normal populations. Clinical correlation is suggested. 21 RIGHT SIDE PAIN 22 Note: Persistent reduction for 3 months or more in an eGFR <60 mL/min/1.73 m2 defines CKD. Patients with eGFR values >/=60 mL/min/1.73 m2 may also have CKD if evidence of persistent proteinuria is present. The original MDRD equation for estimated GFR is not valid for patients less than 18 years of age. Additional information may be found at [email or web address]. 23 Values below the stated reference ranges of AST and ALT can be seen in normal populations. Clinical correlation is suggested. 24 Method: Quidel QuickVue One-Step Immunoassay 25 POSSIBLE UROGENITAL CONTAMINATION. 26 URINE, CLEAN CATCH 27 10,000 - 50,000 CFU/mL 28 NOTE: IF REFLEX CULTURE FOR KLEBSIELLA OXYTOCA IS CLINICALLY INDICATED, PLEASE CONTACT THE MICROBIOLOGY LABORATORY ([phone]) WITHIN 3 DAYS OF THIS REPORT. Unless otherwise specified, testing [place] [address] 29 SPECIMEN DESCRIPTION STOOL SPECIAL REQUESTS NONE RESULT NEGATIVE FOR GIARDIA ANTIGEN BY IMMUNOASSAY NEGATIVE FOR CRYPTOSPORIDIUM ANTIGEN BY IMMUNOAS SAY REPORT STATUS FINAL 08/29/2016 Unless otherwise specified, testing performed by [facility] [email or web address] [address] 30 SPECIMEN DESCRIPTION STOOL SPECIAL REQUESTS NONE RESULT NEGATIVE FOR ENTERIC PATHOGENS BY PCR. NOTE: THIS MOLECULAR ASSAY DETECTS THE FOLLOWING ENTERIC PATHOGENS: CAMPYLOBACTER GROUP (COLI, JEJUNI, JOE), SALMONELLA SPECIES, SHIGELLA SPECIES (DYSENTERIAE, BOYDII, SONNEI, FLEXNERI), VIBRIO GROUP (CHOLERAE, PARAHAEMOLYTICUS), YERSINIA ENTEROCOLITICA, SHIGA TOXIN 1, SHIGA TOXIN 2, NOROVIRUS GROUP 1 AND 2, ROTAVIRUS A. REPORT STATUS FINAL 08/29/2016 Unless otherwise specified, testing performed by [facility] [place] [address] 31 SPECIMEN DESCRIPTION STOOL SPECIAL REQUESTS NONE RESULT NEGATIVE FOR GIARDIA BY DFA NEGATIVE FOR CRYPTOSPORIDIUM BY DFA STOOL SPECIMEN SCREENED FOR THE PRESENCE OF GIARDIA LAMBLIA AND CRYPTOSPORIDIUM PARVUM ONLY. FOR PATIENTS FROM OR WITH A HISTORY OF TRAVEL TO A DEVELOPING COUNTRY, OR WHO HAVE PERSISTANT SYMPTOMS AND/OR ARE IMMUNOCOMPROMISED, CALL MICROBIOLOGY TO REQUEST THE REFLEX TEST OAP FOR A COMPREHENSIVE MICROSCOPIC EXAMINATION. SPECIMENS ARE SAVED IN FIXATIVE AND HELD FOR 7 DAYS FROM THE REPORT DATE TO ALLOW THESE TESTS TO BE ADDED ON. REPORT STATUS FINAL 08/29/2016 Unless otherwise specified, testing performed by [facility] [address] [place] [id number] [address] PERFORMED AT [address] [place] [address] Unless otherwise specified, testing performed by [facility] [address] [place] [id number] 33 Microbiology results SOURCE MIDU FINAL RESULT No growth 34 FIRST MORNING SPECIMENS GENERALLY CONTAIN THE HIGHEST CONCENTRATION OF HCG AND ARE RECOMMENDED FOR EARLY DETECTION OF . 35 Microbiology results SOURCE MIDU FINAL RESULT No growth 36 COLONY COUNT ! 50,000 - 60,000 CFU/ml Organism 1 ! STAPHYLOCOCCUS SAPROPHYTICUS QUANTITY ! MODERATE RECOMMENDED THERAPY: ! ORAL CEPHALOSPORINS OR AMOXICILLIN/CLAV STAPHYLOCOCCUS SAPROPHYTICUS Target Route Dose M.I.C. RX AB COST ------ ----- -------- ------ -- ------ PENICILLIN G >=0.5 R OXACILLIN >=4 R * TETRACYCLINE <=1 S NITROFURANTOIN <=16 S TRIMETHOPRIM/SULFAMETHOXAZOLE BLOOD PO DS <=10 S 0.39 AMOXICILLIN R CEFAZOLIN R GENTAMICIN <=0.5 S CIPROFLOXACIN <=0.5 S MOXIFLOXACIN <=0.25 S LEVOFLOXACIN 0.5 S CEFACLOR R CEFUROXIME R PIPERACILLIN R CEFTRIAXONE R VANCOMYCIN 1 S 37 03/15/13 LAB.[email or web address] Deleted by Reflex Group [facility] 38 FIRST MORNING SPECIMENS GENERALLY CONTAIN THE HIGHEST CONCENTRATION OF HCG AND ARE RECOMMENDED FOR EARLY DETECTION OF . 39 CULTURE TO FOLLOW 40 Microbiology results SOURCE MIDU FINAL RESULT No growth 41 Microbiology results SOURCE MIDU FINAL RESULT No growth 42 Note: Persistent reduction for 3 months or more in an eGFR <60 mL/min/1.73 m2 defines CKD. Patients with eGFR values >/=60 mL/min/1.73 m2 may also have CKD if evidence of persistent proteinuria is present. The original MDRD equation for estimated GFR is not valid for patients less than 18 years of age. Additional information may be found at [email or web address]. 43 FIRST MORNING SPECIMENS GENERALLY CONTAIN THE HIGHEST CONCENTRATION OF HCG AND ARE RECOMMENDED FOR EARLY DETECTION OF . 44 [facility] [employer] [facility]. [address] [place] [address] GYNECOLOGIC CYTOLOGY REPORT Accession Number: [id number] Source of Specimen(s): A: SurePath Vaginal/ Cervical/ Endocervical Pap Smear - One Vial Clinical Diagnosis and History: Date of Last Menstrual Period: None Provided Other Clinical Conditions: REFLEX TO DIGENE HPV ASSAY IF RESULTS OF THIS PAP ARE ASCUS Specimen Adequacy Satisfactory for evaluation Presence of endocervical/transformation zone component General Categorization Negative for intraepithelial lesion or malignancy Interpretation NEGATIVE FOR INTRAEPITHELIAL LESION OR MALIGNANCY Reported: 08/04/2011 Electronically Signed Out By Salima MOJICA(ASCP) [facility] dss Unless otherwise specified, [place] [address] 45 Microbiology results SOURCE MIDU RESULT No growth 46 This sample is drawn by:KD/MUD CLEANER OPERATOR 47 RUBELLA INTERPRETATION: NEGATIVE <10.0 IU/ML BORDERLINE 10.0 - 14.9 IU/ML POSITIVE > OR=15.0 IU/ML VALUES OF 15.0 IU/ML OR GREATER INDICATE IMMUNIZATION OR PAST INFECTION. BORDERLINE RESULTS ARE CONFIRMED. THE MAGNITUDE OF THE REPORTED IGG LEVEL CANNOT BE CORRELATED TO AN ENDPOINT TITER. Unless otherwise specified, testing performed by [facility] [employer] [facility] [address] [address] 48 MEASLES INTERPRETATION: NEGATIVE <0.50 ELFA UNITS BORDERLINE 0.50 - 0.69 ELFA UNITS LOW LEVEL 0.70 - 1.90 ELFA UNITS MED. LEVEL 1.91 - 2.70 ELFA UNITS HIGH LEVEL >2.70 ELFA UNITS VALUES OF 0.70 OR GREATER INDICATE IMMUNIZATION OR PAST INFECTION. BORDERLINE RESULTS ARE CONFIRMED IN DUPLICATE. Unless otherwise specified, testing performed by [employer] [facility] [address] [address] [address] [place] [address] [employer]ene Hybrid Capture II HPV Test Accession Number [id number] Specimen(s) Received A: Digene SP Vaginal/ Cervical/ Endocervical Pap Smear - One Vial Other Case Numbers: [id number] Diagnosis RISK GROUPS HPV TYPES RESULTS High Risk (16, 18, 31, 33, 35, 39, 45, 51, 52, 56, 58, 59, 68) NEGATIVE Comments The performance characteristics of the SurePath cell pellet specimen tested for this assay were validated by [employer] [facility] and licensed for use by the [facility]. This test has not been licensed by the FDA and the result is not intended to be used as the sole means for clinical diagnosis or patient management. Negative results do not rule out the presence of disease. Reported: 10/05/2010 15:44 Electronically Signed Out By Jaimie Zarate ssa 50 Microbiology results SOURCE MIDU RESULT No Growth 51 [employer] [facility]. [address] [place] [address] GYNECOLOGIC CYTOLOGY REPORT Accession Number: [id number] Source of Specimen(s): A: SurePath Vaginal/ Cervical/ Endocervical Pap Smear - One Vial Clinical Diagnosis and History: Date of Last Menstrual Period: None Provided Other Clinical Conditions: DIGENE HPV ASSAY REQUESTED Specimen Adequacy Satisfactory for evaluation Presence of endocervical/transformation zone component General Categorization Negative for intraepithelial lesion or malignancy Interpretation NEGATIVE FOR INTRAEPITHELIAL LESION OR MALIGNANCY Acute inflammatory cells Recommendations HPV testing will be performed via Digene Hybrid Capture II and a separate report will be issued. Reported: 10/05/2010 Electronically Signed Out By Catarina MOJICA(ASCP) [facility] Unless otherwise specified, testing performed by [employer] [place] [address] [place] [address] 52 Unless otherwise specified, testing performed by [facility] [employer] [facility]. [address] [place] [address] 53 SPECIMEN DESCRIPTION BUTTOCKS SPECIAL REQUESTS NONE GRAM STAIN MODERATE (10 TO 25/LPF) WHITE BLOOD CELLS NO EPITHELIAL CELLS MODERATE (5 TO 10/OIF) GRAM POSITIVE COCCI FEW (1 TO 5/OIF) GRAM NEGATIVE RODS CULTURE RESULTS NO GROWTH REPORT STATUS FINAL 04/27/2010 Unless otherwise specified, testing performed by [facility] [employer] [facility] [place] [address] [place] [address] Procedures Date Code Description Status 02/21/2018 63727 Physical Performance Test Or Measurement W/Report, Each 15 Completed Min 04/20/2015 46773 Measure Blood Oxygen Level Single Determination Completed 11/07/2013 58291 Measure Blood Oxygen Level Single Determination Completed 05/11/2011 14435 Destruction Benign Lesions Other Than Skin Tags Up To 14 Completed Lesions 05/01/2011 54021 Destruction Benign Lesions Other Than Skin Tags Up To 14 Completed Lesions 04/14/2011 57702 Destruction Benign Lesions Other Than Skin Tags Up To 14 Completed Lesions 04/04/2011 46904 Destruction Benign Lesions Other Than Skin Tags Up To 14 Completed Lesions 03/24/2011 29582 Destruction Benign Lesions Other Than Skin Tags Up To 14 Completed Lesions 04/25/2010 54201 I & D Pilonidal Cyst Simple Completed Encounters Type Date Location Provider Dx Diagnosis Office Visit 05/20/2018 Pia Kevin, R51 Headache 8:00a N.P. Office Visit 02/26/2018 Pia Kevin, N30.90 Cystitis, unspecified 11:45a N.P. without hematuria N76.0 Acute vaginitis Office Visit 02/21/2018 10:00a Pia Kevin, Z00.00 Encntr for general N.P. adult medical exam w/o abnormal findings Z68.1 Body mass index (BMI) 19.9 or less, adult Office Visit 02/11/2018 11:30a Pia Kevin, R79.9 Abnormal finding of N.P. blood chemistry, unspecified N83.201 Unspecified ovarian cyst, RIGHT side R10.32 LEFT lower quadrant pain Office Visit 01/15/2018 1:40p Pia Kevin, S01.01xA Laceration without N.P. foreign body of scalp, initial encounter Z23 Encounter for immunization Office Visit 11/09/2017 10:30a Pia Kevin, Z02.89 Encounter for other N.P. administrative examinations Z68.1 Body mass index (BMI) 19.9 or less, adult Office Visit 08/14/2017 11:30a Pia Kevin, R10.30 Lower abdominal N.P. pain, unspecified Office Visit 08/25/2016 10:00a Pia Kevin, R10.30 Lower abdominal N.P. pain, unspecified R19.7 Diarrhea, unspecified Office Visit 12/22/2015 8:30a Pia Kevin, N83.29 Other ovarian N.P. cysts R10.30 Lower abdominal pain, unspecified Office Visit 11/23/2015 8:30a Pia Kevin, N83.29 Other ovarian N.P. cysts R19.8 Oth symptoms and signs involving the dgstv sys and abdomen Office Visit 11/02/2015 11:30a Pia Kevin, R19.8 Oth symptoms and N.P. signs involving the dgstv sys and abdomen R30.0 Dysuria Office Visit 04/20/2015 10:45a Pia Kevin, J20.9 Acute bronchitis, N.P. unspecified R05 Cough Office Visit 04/08/2014 Gibson Brooke, V04.81 Need For Prophylactic 11:00a Pia N.P. Vaccination & Inoculation/Influenza 611.79 Breast Signs & Symptoms Other Office Visit 11/07/2013 10:30a Pia Kevin N.PDereck 466.0 Bronchitis Acute 786.2 Cough Office Visit 06/03/2013 8:15a Pia Kevin, 788.1 Dysuria N.P. Office Visit 01/09/2013 2:30p Pia Kevin, 599.89 Urinary Tract Other N.P. Spec Disorders 789.9 Abdomen & Pelvis Symptoms Other Office Visit 08/13/2012 1:00p Pia Kevin, 788.1 Dysuria N.P. Office Visit 06/28/2012 11:30a Pia Kevin, 620.0 Ovarian Cyst N.P. Follicular Office Visit 05/28/2012 2:15p Pia Kevin, 789.9 Abdomen & Pelvis N.P. Symptoms Other 620.0 Ovarian Cyst Follicular Office Visit 02/16/2012 11:00a Pia Kevin, 789.9 Abdomen & Pelvis N.P. Symptoms Other Office Visit 11/22/2011 3:30p Pia Kevin, 626.0 Menstruation Absence N.P. Office Visit 08/21/2011 8:15a Pia Kevin, 616.10 Vaginitis & N.P. Vulvovaginitis Unspec 789.9 Abdomen & Pelvis Symptoms Other Office Visit 08/11/2011 8:45a Pia Kevin, 724.2 Lumbago N.P. Office Visit 08/01/2011 8:15a Pia Kevin, V72.31 Routine Sleeping Car Service Attendant N.P. Examination 788.1 Dysuria 789.9 Abdomen & Pelvis Symptoms Other V74.5 Screening Examination Venereal Disease Office Visit 03/20/2011 8:30a Pia Kevin, V20.2 Exam Infant Or N.P. Child Routine Health Check V74.1 Screening Examination Pulmonary Tuberculosis Office Visit 03/15/2011 3:15p Pia Kevin, 078.12 Plantar Wart N.P. Office Visit 09/30/2010 11:00a Pia Kevin, V20.2 Exam Infant Or N.P. Child Routine Health Check V72.31 Routine Sleeping Car Service Attendant Examination V74.5 Screening Examination Venereal Disease Office Visit 04/25/2010 10:30a Pia Kevin, 685.0 Pilonidal Cyst W/ N.P. Abscess Plan of Treatment 05/27/2018 - Pia Brooke, N.P.R00.2 PalpitationsComments:will obtain EKG from Urgent care for review - pt descriptino of symps are consistent with SVTpt instructed to reduce cafeine intake, avoid stress and practice good sleep hygiene as discussedshe was instructed to report to ER if symps recur or CP/SOB/ dizziness vplthP48.89 Other chest painComments:resolved
--- OUTSIDE RECORDS SUMMARY | 2018-05-28 18:36 | XMS REPORT | Continuity of Care Document ---
:1995 External Reference #:[id number] Author Name Pia Brooke N.P. Address [address] [place] [id number] Care Team Providers Name Role Phone Pia Brooke N.P. Care Team Information Manager Of Case Unavailable Payers Type Date Identification Numbers Payment Provider Subscriber Effective: 2016 Policy Number: [id number] [facility] Bridgett Spears PayID: [id number] [address] [place] [address] PayID: [id number] [facility] Bridgett Spears [address] [place] [address] Effective: 2014 Policy Number: [id number] Medicaid ### >11 Bridgett Spears Expires: 2016 PayID: [id number] [address] [place] [address] Advance Directives Description No Information Available Problems Date Description Provider Status Onset: 08/25/2016 Cyst of ovary Pia Brooke N.PDereck Active Onset: 08/14/2017 Tobacco user Pia Brooke [place] Active Family History Date Family Member(s) Problem(s) Comments Father Good Health Mother Good Health Maternal Uncles pilonidal cyst remval Social History Type Date Description Comments Sex Unknown Lives With Boyfriend 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[place] Tobacco Use Start: Unknown Never Smoked Cigarettes [...] CPT Code Status Date Vaccine Lot # [id number] Given 01/15/2018 Tdap (Adacel) Ages 7 And Above Only [id number] 46006 Given 01/15/2018 Tdap (Adacel) Ages 7 And Above Only 51096 Given 04/08/2014 Afluria Or Fluvirin Flu Vac Intramuscular [id number] 94771 Given 02/15/2007 Tdap (Adacel) Ages 7 And Above Only [id number] 78014 Given 02/15/2007 HPV Vaccine (Gardasil) 3 Dose Schedule [id number] 92742 Given 11/22/1998 IPV / Poliomyelitis Immunization 59050 Given 11/22/1998 MMR Virus Immunization 58344 Given 11/22/1998 DTP Immunization 54152 Given 02/04/1996 Hib ACTHiB Vaccine 4 Dose Schedule 07977 Given 02/04/1996 DTP Immunization 29123 Given 02/09/1995 Hepatitis B Vac Ped/Adolescent 3 Dose Schedule 56674 Given 02/03/1995 MMR Virus Immunization 21293 Given 1994 IPV / Poliomyelitis Immunization 42196 Given 1994 DTP Immunization 51817 Given 1994 Hib ACTHiB Vaccine 4 Dose Schedule 71401 Given 1994 Hepatitis B Vac Ped/Adolescent 3 Dose Schedule 52747 Given 1994 IPV / Poliomyelitis Immunization 23965 Given 1994 DTP Immunization 75265 Given 1994 Hib ACTHiB Vaccine 4 Dose Schedule 95174 Given 1994 Hepatitis B Vac Ped/Adolescent 3 Dose Schedule 50006 Given 1994 IPV / Poliomyelitis Immunization 97133 Given 1994 DTP Immunization 86056 Given 1994 Hib ACTHiB Vaccine 4 Dose Schedule 72458 Refused 04/21/2018 HPV Vaccine (Gardasil) 3 Dose Schedule 75671 Refused 04/21/2018 Influenza Vac, 3 Yrs & [...] Magnesium 2.2 mg/dL 1.5-2.7 finding Protime 02/03/2018 [facility] Protime 15.6 seconds High 12.0-14.4 9 (315)- - Inr 1.2 High 0.9-1.1 10 Laboratory test 02/03/2018 [facility] Act Partial 27.0 seconds N 23.4-35.0 finding (315)- - Thrombo Time Aot Request 02/03/2018 [facility] Aot Request Test(s) added 11 (315)- - Tests to be added: crp Basic Metabolic Panel 02/03/2018 [facility] Glucose 130 mg/dL High 74-106 (315)- [...] 7.9 mg/dL Low 8.5-10.1 Laboratory test 02/03/2018 [facility] Magnesium 1.7 mg/ dL Low 1.8-2.4 finding (315)- - C-Reactive Protein,Quant 6.2 mg/L High <3.0 CBC 02/03/2018 [facility] White Blood Count 12.2 K/uL [...] 11.6 fL N 8.9-12.4 Lactic Acid 02/02/2018 [facility] Lactic Acid 0.9 mmol/L N 0.4-1.9 (315)- - Lab Reflex >2.0 for Sepsis? Y Aot Request 02/02/2018 [facility] Aot Request Test(s) added 13 (315)- - Tests to be added: CRP Laboratory test 02/01/2018 [facility] Urine Culture NO GROWTH: 14 finding (315)- - FINAL <SEE NOTE> Urinalysis With 02/01/2018 [facility] Urine Color YELLOW Yellow 15 Microscopic (315)- - Urine Clarity SL CLOUDY Clear Urine Glucose - Dipstick NEGATIVE mg/dL Negative Urine Bilirubin - Dipstick NEGATIVE Negative Urine Ketone NEGATIVE mg/dL Negative Urine Specific [place] 1.025 N 1.010-1.030 Urine Blood NEGATIVE Negative [...] <SEE NOTE> 17 Laboratory test finding 02/01/2018 [facility] Lipase 207 U/L N 56-289 (315)- - HCG,Serum (Qualitative) NEGATIVE (Negative) 18 C-Reactive Protein,Quant < 2.9 mg/L <3.0 Comprehensive Metabolic 02/01/2018 [facility] Glucose 122 mg/dL High 74-106 Panel [...] 52 U/L N 45-117 CBS W/Automated 02/01/2018 [facility] White Blood 11.6 K/ uL [...] 40.4-72.8 Lymph % 32.7 % N 20.0-42.0 [place] % 6.5 % N 4.3-13.2 Eo% 1.6 % N 0.0-6.6 Bas% 0.3 % N 0.0-1.1 Neut# 6.83 K/uL N 1.8-7.0 Lymph # 3.79 K/uL N 1.0-4.0 [place] # 0.75 K/uL N 0.3-0.9 Eos # 0.19 K/uL N 0.0-0.5 Baso # 0.03 K/uL N 0.0-0.1 CBS W/Automated Diff 08/06/2017 [facility] White Blood 7.2 K/uL N [...] 40.4-72.8 Lymph % 22.6 % N 20.0-42.0 [place] % 6.7 % N 4.3-13.2 Eo% 1.5 % N 0.0-6.6 Bas% 0.3 % N 0.0-1.1 Neut# 4.93 K/uL N 1.8-7.0 Lymph # 1.62 K/uL N 1.0-4.0 [place] # 0.48 K/uL N 0.3-0.9 Eos # 0.11 K/uL N 0.0-0.5 Baso # 0.02 K/uL N 0.0-0.1 Comprehensive Metabolic 08/06/2017 [facility] Glucose 93 mg/dL N 74-106 [...] U/L N 45-117 Laboratory test finding 08/06/2017 [facility] Lipase 163 U/L N 56-289 (315)- - HCG,Serum (Qualitative) NEGATIVE (Negative) 24 Urinalysis With 08/06/2017 [facility] Urine Color YELLOW Yellow Microscopic (315)- - Urine Clarity SL CLOUDY Clear Urine Glucose - Dipstick NEGATIVE mg/dL Negative Urine Bilirubin - Dipstick NEGATIVE Negative Urine Ketone NEGATIVE mg/dL Negative Urine Specific [place] >=1.030 N 1.010-1.030 Urine Blood NEGATIVE Negative [...] CAT <SEE NOTE> 26 Urine Culture 08/06/2017 [facility] Urine Culture URETHRAL JONELLE (315)- - [...] Lactoferrin,Fecal NEGATIVE (Neg) 32 Laboratory test [facility]/02[facility] Urine Microbiology res 33 finding Culture <SEE NOTE> Urine HCG 07/24/2014 [facility] Urine HCG NEGATIVE Negative 34 (Qualitative) (315)- - (Qualitative ) Laboratory test 06/03/2013 [facility] Urine Microbiology res 35 finding Culture <SEE NOTE> Urine Culture 03/15/2013 [facility] Urine See Note 36 (315)- - Culture Urine Screen 03/15/2013 [facility] Urine Screen See Note 37 (315)- - Urine HCG 03/15/2013 [facility] Urine HCG NEGATIVE Negative 38 (Qualitative) (315)- - (Qualitative ) Urinalysis With 03/15/2013 [facility] Urine Color YELLOW Yellow Microscopic (315)- - Urine Clarity CLEAR Clear Urine Glucose - Dipstick NEGATIVE mg/dL Negative Urine Bilirubin - Dipstick NEGATIVE Negative Urine Ketone NEGATIVE mg/dL Negative Urine Specific [place] <=1.005 Low 1.010-1.030 Urine Blood TRACE Negative Urine PH 5.5 Low 6.5-7.5 Urine Protein - Dipstick NEGATIVE mg/dL Negative Urine Urobilinogen - Dipstick 0.2 E.U./dL 0.2-1.0 Urine Nitrite - Dipstick NEGATIVE Negative Urine Leuk Esterase MODERATE High Negative Urine RBC 0-2 rbc/hpf 0-7 Urine WBC 30-50 wbc/hpf High 0-7 Urine Epithelial Cells FEW NONESEEN/lpf Urine Bacteria FEW NONESEEN Laboratory test 03/15/2013 [facility] Culture If See Note 39 finding (315)- - Indicated Comment Laboratory test 01/09/2013 [facility] Urine Culture Microbiology res 40 finding <SEE NOTE> Laboratory test 08/13/2012 [facility] Urine Culture Microbiology res 41 finding <SEE NOTE> Liver Function 05/26/2012 [facility] Total Protein 7.0 g/ dL 6.3-8 Tests (315)- - .0 Albumin 3.7 g/dL 3.5-5.0 Globulin 3.3 g/dL 1.9-4.3 Alb/Glob 1.1 ratio Bilirubin,Total 0.2 mg/dL 0.2-1.2 Bilirubin,Direct < 0.1 mg/dL Low 0.1-0.4 Bilirubin,Indirect 0.1 mg/dL 0.0-0.9 Sgot/Ast 10 U/L Low 16-40 SGPT/Alt 18 U/L Low 30-65 Alkaline Phosphatase 67 U/L 50-136 Basic Metabolic Panel 05/26/2012 [facility] Glucose 98 mg /dL 76-115 (315)- - BUN 12 mg/dL 5-23 Creatinine 0.9 mg/dL 0.5-1.4 Glom Filtration Rate, Estimate >60 mL/min >60 If >60 mL/min >60 42 BUN/Creat 13.3 ratio Sodium 142 mmol/L 136-145 Potassium 3.6 mmol/L 3.5-5.1 Chloride 110 mmol/L High 98-107 Carbon Dioxide 24 mEq/L 18-29 Anion Gap 12 mEq/L 8-16 Calcium 9.0 mg/dL 8.5-10.1 Laboratory test 05/26/2012 [facility] Lipase 123 U/L 28-380 finding (315)- - CBC W/Automated 05/26/2012 [facility] White Blood 7.8 K/ uL 3.1-10.7 Diff [...] High 28.0-68.0 Lymph % 23.9 % 17.0-46.1 [place] % 5.8 % 4.3-13.2 Eo% 1.4 % 0.0-6.6 Bas% 0.3 % 0.0-1.1 Neut# 5.37 K/uL 1.0-7.0 Lymph # 1.87 K/uL 0.8-3.4 [place] # 0.45 K/uL 0.0-0.6 Eos # 0.11 K/uL 0.0-0.5 Baso # 0.02 K/uL 0.0-0.1 Laboratory test 05/26/2012 [facility] Urine HCG NEGATIVE Negative 43 finding (315)- - (Qualitative) Urine Screen 05/26/2012 [facility] Urine Color YELLOW Yellow (315)- - Urine Clarity CLEAR Clear Urine Glucose - Dipstick NEGATIVE mg/dL Negative Urine Bilirubin - Dipstick NEGATIVE Negative Urine Ketone NEGATIVE mg/dL Negative Urine Specific [place] 1.010 1.010-1.030 Urine Blood NEGATIVE Negative Urine [...] ELFA 48 finding Laboratory test 09/30/2010 [facility] 49 finding [phone] Allia <SEE NOTE> Affirm 09/30/2010 [facility] Trichomonas [...] - (SEE NOTE) 53 [place] [facility] [place] [address] [phone] Specimen Description - LA N/A Special Requests [...] CLINICALLY INDICATED, PLEASE CONTACT THE MICROBIOLOGY LABORATORY ([phone]) WITHIN 3 DAYS OF THIS REPORT. Unless otherwise specified, testing [place] [address] 29 SPECIMEN DESCRIPTION STOOL SPECIAL REQUESTS NONE RESULT NEGATIVE FOR GIARDIA ANTIGEN BY IMMUNOASSAY NEGATIVE FOR CRYPTOSPORIDIUM ANTIGEN BY IMMUNOAS SAY REPORT STATUS FINAL 08/29/2016 Unless otherwise specified, testing performed by [facility] [place] [address] 30 SPECIMEN DESCRIPTION STOOL SPECIAL REQUESTS NONE [...] 08/29/2016 Unless otherwise specified, testing performed by [facility] [place] [address] 31 SPECIMEN DESCRIPTION STOOL SPECIAL REQUESTS NONE [...] Unless otherwise specified, testing performed by [facility] [address] [place] [address] 32 PERFORMED AT [address] [place] [address] Unless otherwise specified, testing performed by [facility] [address] [place] [address] 33 Microbiology results SOURCE MIDU FINAL RESULT [...] 37 03/15/13 LAB.[email or web address] Deleted by [facility] [place] FIRST MORNING SPECIMENS GENERALLY CONTAIN THE [...] RECOMMENDED FOR EARLY DETECTION OF . 44 [facility] [employer] [facility]. [address] [place] [address] GYNECOLOGIC CYTOLOGY REPORT Accession Number: [id number] Source of Specimen(s): A: SurePath Vaginal/ Cervical/ [...] 08/04/2011 Electronically Signed Out By Salima MOJICA(ASCP) [facility] dss Unless otherwise specified, [place] [address] 45 Microbiology results SOURCE MIDU RESULT No growth 46 This sample is drawn by:KD/FERRYBOAT CAPTAIN 47 RUBELLA INTERPRETATION: NEGATIVE <10.0 IU/ML BORDERLINE 10.0 - 14.9 IU/ML POSITIVE > OR=15.0 IU/ML VALUES OF 15.0 IU/ML OR GREATER INDICATE IMMUNIZATION OR PAST INFECTION. BORDERLINE RESULTS ARE CONFIRMED. THE MAGNITUDE OF THE REPORTED IGG LEVEL CANNOT BE CORRELATED TO AN ENDPOINT TITER. Unless otherwise specified, testing performed by [facility] [address] [address] MEASLES INTERPRETATION: NEGATIVE <0.50 ELFA UNITS BORDERLINE 0.50 - 0.69 ELFA UNITS LOW LEVEL 0.70 - 1.90 ELFA UNITS MED. LEVEL 1.91 - 2.70 ELFA UNITS HIGH LEVEL >2.70 ELFA UNITS VALUES OF 0.70 OR GREATER INDICATE IMMUNIZATION OR PAST INFECTION. BORDERLINE RESULTS ARE CONFIRMED IN DUPLICATE. Unless otherwise specified, testing performed by [facility] [address] [address] [place] [address] [employer]ene Hybrid Capture II HPV Test Accession Number [id number] Specimen(s) Received A: Digene SP Vaginal/ Cervical/ Endocervical Pap Smear - One Vial Other Case Numbers: [id number] Diagnosis RISK GROUPS HPV TYPES RESULTS High Risk (16, 18, 31, 33, 35, 39, 45, 51, 52, 56, 58, 59, 68) NEGATIVE Comments The performance characteristics of the SurePath cell pellet specimen tested for this assay were validated by [facility] and licensed for use by the [facility]. This test has not been licensed by the FDA and the result is not intended to be used as the sole means for clinical diagnosis or patient management. Negative results do not rule out the presence of disease. Reported: 10/05/2010 15:44 Electronically Signed Out By Jaimie Zarate ssa 50 Microbiology results SOURCE MIDU RESULT No Growth 51 [facility]. [address] [place] [address] GYNECOLOGIC CYTOLOGY REPORT Accession Number: [id number] Source of Specimen(s): A: SurePath Vaginal/ Cervical/ [...] 10/05/2010 Electronically Signed Out By Catarina MOJICA(ASCP) [facility] Unless otherwise specified, testing performed by [facility] [address] [place] [address] 52 Unless otherwise specified, testing performed by [facility] [employer] [facility]. [address] [place] [address] 53 SPECIMEN DESCRIPTION BUTTOCKS SPECIAL REQUESTS NONE GRAM STAIN MODERATE (10 TO 25/LPF) WHITE BLOOD CELLS NO EPITHELIAL CELLS MODERATE (5 TO 10/OIF) GRAM POSITIVE COCCI FEW (1 TO 5/OIF) GRAM NEGATIVE RODS CULTURE RESULTS NO GROWTH REPORT STATUS FINAL 04/27/2010 Unless otherwise specified, testing performed by [facility] [place] [address] [place] [address] Procedures Date Code Description Status 02/21/2018 28218 Physical Performance Test Or Measurement W/Report, Each 15 Completed Min 04/20/2015 47116 Measure Blood Oxygen Level Single Determination Completed 11/07/2013 36577 Measure Blood Oxygen Level Single Determination Completed 05/11/2011 66708 Destruction Benign Lesions Other Than Skin Tags Up To 14 Completed Lesions 05/01/2011 91607 Destruction Benign Lesions Other Than Skin Tags Up To 14 Completed Lesions 04/14/2011 59188 Destruction Benign Lesions Other Than Skin Tags Up To 14 Completed Lesions 04/04/2011 70876 Destruction Benign Lesions Other Than Skin Tags Up To 14 Completed Lesions 03/24/2011 89819 Destruction Benign Lesions Other Than Skin Tags Up To 14 Completed Lesions 04/25/2010 52463 I & D Pilonidal Cyst Simple Completed [...] less, adult Office Visit 08/14/2017 11:30a Pia Kvein, R10.30 Lower abdominal N.P. 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 Examination 788.1 Dysuria 789.9 Abdomen & Pelvis Symptoms Other V74.5 Screening Examination Venereal Disease Office Visit 03/20/2011 8:30a Pia Kevin, V20.2 Exam Infant Or N.P. Child Routine Health Check V74.1 Screening Examination Pulmonary Tuberculosis Office Visit 03/15/2011 3:15p Pia Kevin, 078.12 Plantar Wart N.P. Office Visit 09/30/2010 11:00a Pia Kevin, V20.2 Exam Infant Or N.P. Child Routine Health Check V72.31 Routine Meatcutter Examination V74.5 Screening Examination Venereal Disease Office Visit 04/25/2010 10:30a Pia Kevin, 685.0 Pilonidal Cyst W/ N.P. Abscess Plan of Treatment Future Appointment(s):05/30/2018 8:45 am - Pia Brooke, N.P. at [email or web address] - Pia Brooke, N.P.R00.2 PalpitationsComments:will obtain EKG from Urgent care for review - pt descriptino of symps are consistent with SVTpt instructed to reduce cafeine intake, avoid stress and practice good sleep hygiene as discussedshe was instructed to report to ER if symps recur or CP/SOB/ dizziness [id number] Other chest painComments:resolved
[2018-05-28 19:10] VITALS: BP 135/86
--- NOTE | 2018-05-28 20:47 | UC ---
UC General HPI - HPI Summary HPI Summary: pt c/o 6 day hx pain L side of neck s/p slip on ice and near fall. went to [facility] and f/u PCP. c/o ongoing soreness L side of neck. f/u appt with pcp in 2 days. - History of Current Complaint Chief Complaint: UCBackPain Stated Complaint: NECK PAIN Time Seen by Provider: 05/28/18 20:40 Hx Obtained From: Patient Hx Last Menstrual Period: 05/24/18 Pain Intensity: 1 Aggravating: turning head - Allergy/Home Medications Allergies/Adverse Reactions: Allergies Allergy/AdvReac Type Severity Reaction Status Date / Time No Known Allergies Allergy Verified 05/28/18 19:11 Home Medications: Home Medications Amoxicillin PO (*) [Amoxicillin 500 MG CAP*] 500 mg PO Q12H 05/28/18 [History Confirmed 05/28/18] PMH/Surg Hx/FS Hx/Imm Hx Previously Healthy: Yes - Surgical History Surgical History: Yes Surgery Procedure, Year, and Place: LT KNEE - TORN MENISCUS 2012, REMOVED CYST FROM [facility] - Family History Known Family History: Positive: None - Pt denies FMHX Negative: Renal Disease, Respiratory Disease, Seizure Disorder - Social History Occupation: Employed Full-time Alcohol Use: Rare Substance Use Type: None Smoking Status (MU): Light Every Day Tobacco Smoker Type: Cigarettes Amount Used/How Often: 1/2 PK DAILY - Immunization History Vaccination Up to Date: Yes Review of Systems All Other Systems Reviewed And Are Negative: Yes Constitutional: Positive: Negative Skin: Positive: Negative Eyes: Positive: Negative ENT: Positive: Negative Respiratory: Positive: Negative Cardiovascular: Positive: Negative Gastrointestinal: Positive: Negative Genitourinary: Positive: Negative Motor: Positive: Negative Neurovascular: Positive: Negative Musculoskeletal: Positive: Other: - pain L side of neck Neurological: Positive: Negative Psychological: Positive: Negative Is Patient Immunocompromised?: No Physical Exam Triage Information Reviewed: Yes Appearance: Well-Appearing Vital Signs: Initial Vital Signs Temp 99.7 F 05/28/18 19:06 Pulse 105 05/28/18 19:06 Resp 16 05/28/18 19:06 BP 135/86 05/28/18 19:06 Pulse Ox 98 05/28/18 19:06 Vital Signs Reviewed: Yes Eyes: Positive: Conjunctiva Clear ENT: Positive: Pharynx normal, TMs normal. Negative: Nasal congestion, Nasal drainage Neck: Positive: Supple, No Lymphadenopathy, Other: - Tender over L side of trapezius mm which reproduces L neck pain. c-spine is non tender. pain L trapezius when tirns head. Respiratory: Positive: Lungs clear, Normal breath sounds Cardiovascular: Positive: RRR, No Murmur, Other: - Rate=96. Negative: Tachycardia Abdomen Description: Positive: Nontender, No Organomegaly, Soft Bowel Sounds: Positive: Present Musculoskeletal: Positive: Other: - c-spine, throacic and lumbar spine non tender. LUE: no deformity, swelling or tenderness and rom intact. Neurological: Positive: Other: - A&Ox3. CN 2-12 grossly intact. 5/5 strenght 2+ reflexes and sensation intact x4. Steady gait. Psychological: Positive: Age Appropriate Behavior Skin Exam: Normal Course/Dx - Course Course Of Treatment: pt also c/o having episodes "where she feels like she is in a fog and detached". she feels fine after. her neuro exam here is unremarkable and she has no current s/s's. she has f/u with her pcp in 2 dyas and was advised to discuss this with her. - Diagnoses Provider Diagnosis: Neck muscle strain Discharge - Sign-Out/Discharge Documenting (check all that apply): Patient Departure All imaging exams completed and their final reports reviewed: No Studies - Discharge Plan Condition: Stable Disposition: HOME Prescriptions: Cyclobenzaprine TAB* [Flexeril 10 MG TAB*] 10 mg PO TID PRN #10 tab PRN Reason: Spasms - Neck Naproxen [Naprosyn 500 mg tab] 500 mg PO BID 5 Days #10 tablet Patient Education Materials: Muscle Strain (DC) Referrals: Pia Brooke NP [Primary Care Provider] - 2 Days - Billing Disposition and Condition Condition: STABLE Disposition: Home - Attestation Statements Provider Attestation: I was available for consult. This patient was seen by the MILAGRO. The patient was not presented to, seen by, or examined by me. -Gustavo
[2018-05-28] MEDS ORDERED: Cyclobenzaprine TAB* 10 MG PO ONE (20:54)
== END 2018-05-28 21:00 | disposition home or self-care (01) ==
LOC: UCCORT 18:25
DX: S16.1XXA Strain of muscle, fascia and tendon at neck level, initial encounter (principal); W00.0XXA Fall on same level due to ice and snow, initial encounter; Y92.9 Unspecified place or not applicable; F17.210 Nicotine dependence, cigarettes, uncomplicated
CPT/HCPCS: 99212; A9270-GY; G0463

== ENCOUNTER 2018-06-28 17:04 | Emergency (ER) | payer OTHER ==
[2018-06-28 17:34] VITALS: BP 132/84
--- OUTSIDE RECORDS SUMMARY | 2018-06-28 18:06 | XMS REPORT | Continuity of Care Document ---
:1995 External Reference #:[id number] Author Name Pia Brooke N.P. Address [address] [place] [id number] Care Team Providers Name Role Phone Pia Brooke N.P. Care Team Information [employer] Unavailable Payers Type Date Identification Numbers Payment Provider Subscriber Effective: 2016 Policy Number: [id number] [facility] Bridgett Spears PayID: [id number] [address] [place] [address] PayID: [id number] [facility] Bridgett Spears [address] [place] [address] Effective: 2014 Policy Number: [id number] Medicaid ### >11 Bridgett Spears Expires: 2016 PayID: [id number] [address] [place] [address] Advance Directives Description No Information Available Problems Date Description Provider Status Onset: 08/25/2016 Cyst of ovary Pia Brooke N.PDereck Active Onset: 08/14/2017 Tobacco user Pia Brooke N.Misael Active Family History Date Family Member(s) Problem(s) Comments Father Good Health Mother Good Health Maternal Uncles pilonidal cyst remval Social History Type Date Description Comments Sex Unknown Lives With Boyfriend 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 Physical 05/30/ Active evaluate [facility] 2018 and treat Mashelle, neck and N.P. shoulder pain dx: pain Ciprofloxacin 06/04/ Hx Tablets 500mg 6tabs 1 by mouth Edwardo, HCL 2018 - twice a Mashelle, 06/17/ day x 3 N.P. 2018 days Sulfamethoxazol 02/26/ Hx Tablets 800-160mg 6tabs 1 [...] every 6-8h Mashelle, 08/25/ as needed N.P. 2016 pain Zithromax Z-True 04/20/ Hx Tablets 250mg 1tabs as Edwardo, 2014 - directed Mashelle, 11/01/ N.P. 2015 Cheratussin ac 04/20/ Hx Syrup 100-10mg/5 236ml 1 teaspoon Edwardo, 2014 - ML every 4-6 Mashelle, 11/01/ h as N.P. 2015 needed cough Work Note 04/20/ Hx no [...] x Edwardo, 2012 - 5 days Mashelle, 05/09/ N.P. 2013 Hydrocodone/Kirk 05/29/ Hx Tablets 5-325mg 24tabs 1 po q Edwardo, taminophen 2011 - 4-6h prn Mashelle, 11/07/ pain N.P. 2013 Acetaminophen/C 02/19/ Hx Tablets 300-30mg 12tabs 1-2 po q [place], odeine #3 2011 - 4-6 hours Mashelle, 05/28/ prn pain N.P. 2011 Ortho Evra 11/21/ Hx Patches 150-20mcg/ 18unit apply [place], 2011 - Weekly [facility]HR [facility]/ every week N.P. 2011 as directed for Metronidazole 08/24/ Hx Tablets 500mg 14tabs 1 po bid x Edwarod, 2011 - 7 days Mashelle, 02/15/ N.P. [...] Hx patient Edwardo, 2010 - was seen , in our N.P. 2011 office today for medical reasons Metrogel-Vagina 10/14/ Hx Gel 0.75% 70G one appl deb Brooke 2010 [facility]d N.P. 2011 Apri 06/09/ Hx Tablets 0.15-30mg- 28tabs 1 po qd Edwardo, 2009 - mcg Mashelle, 02/15/ N.P. 2012 Aviane 04/25/ Hx Tablets 0.1-20mg-m 1pack 1 po qd Edwardo, 2009 - cg Mashelle, 06/09/ N.P. 2010 Keflex 04/25/ Hx Capsules 500mg 28caps 1 po qid x Edwardo, 2009 - 7 days Mashelle, 09/30/ N.P. 2010 Tylenol/Codeine 04/25/ Hx Tablets 300-30mg 24tabs 1 -2 po q Edwardo, #3 2009 - 4-6 hours Pia, 09/30/ prn pain N.P. 2010 School Note 04/25/ Hx no sports Edwardo, 2009 - or gym for Pia, 09/30/ 2 weeks N.P. 2010 Norgestim-Eth / Hx Tablets 0.18/0.215 Unknown Estrad 0000 - /0.25 Triphasic 06/17/ mg-35 mcg 2017 Medications Administered in Office Medication Date Status Form Strength Qnty SIG Indications Ordering Provider PPD Administered Injection Edwardo, 1 Pia, N.P. Immunizations CPT Code Status Date Vaccine Lot # [id number] Given 01/15/2018 Tdap (Adacel) Ages 7 And Above Only [id number] 16815 Given 01/15/2018 Tdap (Adacel) Ages 7 And Above Only 58163 Given 04/08/2014 Afluria Or Fluvirin Flu Vac Intramuscular [id number] 27121 Given 02/15/2007 Tdap (Adacel) Ages 7 And Above Only [id number] 64597 Given 02/15/2007 HPV Vaccine (Gardasil) 3 Dose Schedule [id number] 53603 Given 11/22/1998 IPV / Poliomyelitis Immunization 25641 Given 11/22/1998 MMR Virus Immunization 07083 Given 11/22/1998 DTP Immunization 40760 Given 02/04/1996 Hib ACTHiB Vaccine 4 Dose Schedule 33921 Given 02/04/1996 DTP Immunization 03658 Given 02/09/1995 Hepatitis B Vac Ped/Adolescent 3 Dose Schedule 62206 Given 02/03/1995 MMR Virus Immunization 74126 Given 1994 IPV / Poliomyelitis Immunization 89276 Given 1994 DTP Immunization 68507 Given 1994 Hib ACTHiB Vaccine 4 Dose Schedule 65975 Given 1994 Hepatitis B Vac Ped/Adolescent 3 Dose Schedule 04654 Given 1994 IPV / Poliomyelitis Immunization 94853 Given 1994 DTP Immunization 42442 Given 1994 Hib ACTHiB Vaccine 4 Dose Schedule 89859 Given 1994 Hepatitis B Vac Ped/Adolescent 3 Dose Schedule 97522 Given 1994 IPV / Poliomyelitis Immunization 26688 Given 1994 DTP Immunization 10736 Given 1994 Hib ACTHiB Vaccine 4 Dose Schedule 24838 Refused 04/21/2018 HPV Vaccine (Gardasil) 3 Dose Schedule 05317 Refused 04/21/2018 Influenza Vac, 3 Yrs & Older, Quadrivalent, Split, Im Use Vital Signs Date Vital Result Comment 06/17/2018 11:12am Body Temperature 99.0 F Weight 115.00 lb Heart Rate 112 /min BP Systolic 130 mmHg BP Diastolic 86 mmHg O2 % BldC Oximetry 99 % 06/04/2018 10:44am Body Temperature 99.0 F Weight 118.25 lb Heart Rate 105 /min BP Systolic 94 mmHg BP Diastolic 54 mmHg O2 % BldC Oximetry 99 % 05/30/2018 8:41am Body Temperature 99.1 F Weight 115.50 lb Heart Rate 108 /min BP Systolic 104 mmHg BP Diastolic 84 mmHg O2 % BldC Oximetry 99 % 05/27/2018 11:23am Body Temperature 98.6 F Weight [...] Date Facility Test Result H/L Range Note CBC with Auto Diff-fcmg 06/17/2018 [facility] 6.5 K/uL 4.1-11.0 1 RBC 4.87 M/uL 4.00-5.40 Hemoglobin 15.6 gm/dL 12.0-16.0 Hematocrit 44.9 % 36.0-47.0 MCV 92.1 fL 80.0-97.0 MCH 32.0 pg 27.0-32.0 MCHC 34.7 g/dL 32.0-36.0 RDW 13.0 % 11.5-14.5 PLT Count 135 K/ul Low 140-400 MPV 10.1 FL 7.1-10.7 Neutrophil 77.8 % High 35.0-75.0 Lymphocyte 17.7 % 16.0-52.0 Monocyte 3.8 % 2.0-10.0 Eosinophil 0.2 % 0.0-5.0 Basophil 0.5 % 0.0-4.0 Abs Neutrophils 5.1 K/uL 2.1-8.0 Abs Lymphocytes 1.1 K/uL 0.8-5.5 Abs Monocytes 0.2 K/uL 0.1-1.0 Abs Eosinophils 0.0 K/uL 0.0-0.5 Abs Basophils 0.0 K/uL 0.0-0.3 Laboratory test 06/17/2018 [facility] CRP (C-Reactive) <0.02 mg/dL 0.00- 0.75 finding Laboratory test 06/04/2018 [facility] Urine Culture Microbiology res 2 finding <SEE NOTE> Laboratory test 05/27/2018 [facility] TSH 1.57 uIU/mL 0.35-4.94 3 finding Laboratory test 02/26/2018 [facility] Urine Culture Microbiology res 4 finding <SEE NOTE> Comprehensive Met 02/11/2018 [facility] Sodium 138 mmol/L 135-146 5, 6 Panel-FCMG Potassium 4.2 mmol/L 3.5-5.2 Chloride# 106 mmol/L 97-110 7 Carbon Dioxide 22 mmol/L Low 24-34 Glucose 92 mg/dL 70-105 BUN 6 mg/dL 6-26 Creatinine 0.6 mg/dL 0.5-1.4 Calcium 8.9 mg/dL 8.5-10.2 Total Protein 6.4 g/dL 6.0-8.0 Albumin 4.1 g/dL 3.6-4.9 Globulin 2.3 g/dL 2.0-3.5 A/G Ratio 1.8 Ratio 1.0-2.2 Total Bilirubin 0.3 mg/dL 0.1-1.3 Alkaline Phosphatase 43 U/L 24-140 Alt 6 U/L 3-42 Ast 9 U/L 8-42 Beatris Egfr >60 >60 8 Non Beatris Egfr >60 >60 9 Anion Gap 10 mmol/L 5-15 10 CBC with Auto Diff-fcmg 02/11/2018 [facility] WBC 7.6 K/uL 4.1-11.0 RBC 3.77 M/uL [...] Magnesium 2.2 mg/dL 1.5-2.7 finding Protime 02/03/2018 [facility] Protime 15.6 seconds High 12.0-14.4 11 (315)- - Inr 1.2 High 0.9-1.1 12 Laboratory test 02/03/2018 [facility] Act Partial 27.0 seconds N 23.4-35.0 finding (315)- - Thrombo Time Aot Request 02/03/2018 [facility] Aot Request Test(s) added 13 (315)- - Tests to be added: crp Basic Metabolic Panel 02/03/2018 [facility] Glucose 130 mg/dL High 74-106 (315)- - BUN 4 mg/dL Low 7-18 Creatinine 0.6 mg/dL N 0.6-1.3 Glom Filtration Rate, Estimate >60 mL/min >60 If >60 mL/min >60 14 BUN/Creat 6.6 ratio Sodium 143 mmol/L N 136-145 Potassium 3.4 mmol/L Low 3.5-5.1 Chloride 112 mmol/L High 98-107 Carbon Dioxide 23 mmol/L N 21-32 Anion Gap 8 mEq/L N 8-16 Calcium 7.9 mg/dL Low 8.5-10.1 Laboratory test 02/03/2018 [facility] Magnesium 1.7 mg/ dL Low 1.8-2.4 finding (315)- - C-Reactive Protein,Quant 6.2 mg/L High <3.0 CBC 02/03/2018 [facility] White Blood Count 12.2 K/uL [...] Mean Platelet Volume 11.6 fL N 8.9-12.4 Aot Request 02/02/2018 [facility] Aot Request Test(s) added 15 (315)- - Tests to be added: CRP Lactic Acid 02/02/2018 [facility] Lactic Acid 0.9 mmol/L N 0.4-1.9 (315)- - Lab Reflex >2.0 for Sepsis? Y CBS W/Automated 02/01/2018 [facility] White Blood 11.6 K/ uL High 3.1-10.7 16 Diff (315)- - Count Red Blood Count [...] 40.4-72.8 Lymph % 32.7 % N 20.0-42.0 [place] % 6.5 % N 4.3-13.2 Eo% 1.6 % N 0.0-6.6 Bas% 0.3 % N 0.0-1.1 Neut# 6.83 K/uL N 1.8-7.0 Lymph # 3.79 K/uL N 1.0-4.0 [place] # 0.75 K/uL N 0.3-0.9 Eos # 0.19 K/uL N 0.0-0.5 Baso # 0.03 K/uL N 0.0-0.1 Comprehensive Metabolic 02/01/2018 [facility] Glucose 122 mg/dL High 74-106 Panel (315)- - BUN 8 mg/dL N 7-18 Creatinine 0.8 mg/dL N 0.6-1.3 Glom Filtration Rate, Estimate >60 mL/min >60 If >60 mL/min >60 17 BUN/Creat 10.0 ratio Sodium 143 mmol/L N [...] N 0.2-1.0 Sgot/Ast 11 U/L Low 15-37 18 SGPT/Alt 14 U/L N 12-78 Alkaline Phosphatase 52 U/L N 45-117 Laboratory test finding 02/01/2018 [facility] Lipase 207 U/L N 56-289 (315)- - HCG,Serum (Qualitative) NEGATIVE (Negative) 19 C-Reactive Protein,Quant < 2.9 mg/L <3.0 Urinalysis With 02/01/2018 [facility] Urine Color YELLOW Yellow Microscopic (315)- - Urine Clarity SL CLOUDY Clear Urine Glucose - Dipstick NEGATIVE mg/dL Negative Urine Bilirubin - Dipstick NEGATIVE Negative Urine Ketone NEGATIVE mg/dL Negative Urine Specific [place] 1.025 N 1.010-1.030 Urine Blood NEGATIVE Negative Urine PH 6.0 Low 6.5-7.5 Urine Protein - Dipstick NEGATIVE mg/dL Negative Urine Urobilinogen - Dipstick 0.2 E.U./dL N 0.2-1.0 Urine Nitrite - Dipstick NEGATIVE Negative Urine Leuk Esterase MODERATE Abnormal Negative Urine RBC 0-2 rbc/hpf 0-2 Urine WBC 20-30 wbc/hpf High 0-7 Urine Epithelial Cells MANY /lpf None Seen 20 Urine Bacteria MODERATE Abnormal None Seen Urine Amorph Sediment SMALL Negative Source: URINE, CLEAN CAT <SEE NOTE> 21 Laboratory test 02/01/2018 [facility] Urine Culture NO GROWTH: 22, 23 finding (315)- - FINAL <SEE NOTE> Urine Culture 08/06/2017 [facility] Urine Culture URETHRAL JONELLE 24 (315)- - Quantity 10,000 - 50,000 <SEE NOTE> 25 Urinalysis With 08/06/2017 [facility] Urine Color YELLOW Yellow Microscopic (315)- - Urine Clarity SL CLOUDY Clear Urine Glucose - Dipstick NEGATIVE mg/dL Negative Urine Bilirubin - Dipstick NEGATIVE Negative Urine Ketone NEGATIVE mg/dL Negative Urine Specific [place] >=1.030 N 1.010-1.030 Urine Blood NEGATIVE Negative Urine PH 5.5 Low 6.5-7.5 Urine Protein - Dipstick NEGATIVE mg/dL Negative Urine Urobilinogen - Dipstick 0.2 E.U./dL N 0.2-1.0 Urine Nitrite - Dipstick NEGATIVE Negative Urine Leuk Esterase TRACE Abnormal Negative Urine RBC NONE SEEN rbc/hpf 0-2 Urine WBC 10-20 wbc/hpf High 0-7 Urine Epithelial Cells MANY /lpf None Seen 26 Urine Mucus SMALL None Seen Source: URINE, CLEAN CAT <SEE NOTE> 27 Laboratory test finding 08/06/2017 [facility] Lipase 163 U/L N 56-289 (315)- - HCG,Serum (Qualitative) NEGATIVE (Negative) 28 Comprehensive Metabolic 08/06/2017 [facility] Glucose 93 mg/dL N 74-106 Panel (315)- - BUN 11 mg/dL N 7-18 Creatinine 0.8 mg/dL N 0.6-1.3 Glom Filtration Rate, Estimate >60 mL/min >60 If >60 mL/min >60 29 BUN/Creat 13.7 ratio Sodium 140 mmol/L N [...] N 0.2-1.0 Sgot/Ast 5 U/L Low 15-37 30 SGPT/Alt 15 U/L N 12-78 Alkaline Phosphatase 49 U/L N 45-117 CBS W/Automated Diff 08/06/2017 [facility] White Blood 7.2 K/uL N 3.1-10.7 (315)- - Count Red Blood Count 4.60 [...] 40.4-72.8 Lymph % 22.6 % N 20.0-42.0 [place] % 6.7 % N 4.3-13.2 Eo% 1.5 % N 0.0-6.6 Bas% 0.3 % N 0.0-1.1 Neut# 4.93 K/uL N 1.8-7.0 Lymph # 1.62 K/uL N 1.0-4.0 [place] # 0.48 K/uL N 0.3-0.9 Eos # 0.11 K/uL N 0.0-0.5 Baso # 0.02 K/uL N 0.0-0.1 Stool Panel 08/28/2016 [facility] Enteric Pathogens By PCR SEE NOTE 31 Giard/Cryptosp Exam SEE NOTE 32 Lactoferrin,Fecal NEGATIVE (Neg) 33 Crypto/Giard Antigen 08/28/2016 [facility] Crypto/Giard Antigen SEE NOTE 34 C Diff Toxin B/PCR-RL 08/28/2016 [facility] Specimen Description STOOL C Diff Toxin B NEGATIVE (Neg) 027 Nap1 B1 NEGATIVE (Neg) Comment NOTE: IF REFLEX <SEE NOTE> 35 Laboratory test 11/02/2015 [facility] Urine Culture Microbiology res 36 finding <SEE NOTE> Urine HCG 07/24/2014 [facility] Urine HCG NEGATIVE Negative 37 (Qualitative) (315)- - (Qualitative) Laboratory test 06/03/2013 [facility] Urine Culture Microbiology res 38 finding <SEE NOTE> Urine Culture 03/15/2013 [facility] Urine Culture See Note 39 (315)- - Urine Screen 03/15/2013 [facility] Urine Screen See Note 40 (315)- - Laboratory test 03/15/2013 [facility] Culture If See Note 41 finding (315)- - Indicated Comment Urinalysis With 03/15/2013 [facility] Urine Color YELLOW Yellow Microscopic (315)- - Urine Clarity CLEAR Clear Urine Glucose - Dipstick NEGATIVE mg/dL Negative Urine Bilirubin - Dipstick NEGATIVE Negative Urine Ketone NEGATIVE mg/dL Negative Urine Specific [place] <=1.005 Low 1.010-1.030 Urine Blood TRACE Negative Urine PH 5.5 Low 6.5-7.5 Urine Protein - Dipstick NEGATIVE mg/dL Negative Urine Urobilinogen - Dipstick 0.2 E.U./dL 0.2-1.0 Urine Nitrite - Dipstick NEGATIVE Negative Urine Leuk Esterase MODERATE High Negative Urine RBC 0-2 rbc/hpf 0-7 Urine WBC 30-50 wbc/hpf High 0-7 Urine Epithelial Cells FEW NONESEEN/lpf Urine Bacteria FEW NONESEEN Urine HCG 03/15/2013 [facility] Urine HCG NEGATIVE Negative 42 (Qualitative) (315)- - (Qualitative) Laboratory test 01/09/2013 [facility] Urine Culture Microbiology 43 finding res <SEE NOTE> Laboratory test 08/13/2012 [facility] Urine Culture Microbiology 44 finding res <SEE NOTE> Liver Function 05/26/2012 [facility] Total Protein 7.0 g/ dL 6.3-8.0 Tests (315)- - Albumin 3.7 g/dL 3.5-5.0 Globulin 3.3 g/dL 1.9-4.3 Alb/Glob 1.1 ratio Bilirubin,Total 0.2 mg/dL 0.2-1.2 Bilirubin,Direct < 0.1 mg/dL Low 0.1-0.4 Bilirubin,Indirect 0.1 mg/dL 0.0-0.9 Sgot/Ast 10 U/L Low 16-40 SGPT/Alt 18 U/L Low 30-65 Alkaline Phosphatase 67 U/L 50-136 Basic Metabolic Panel 05/26/2012 [facility] Glucose 98 mg /dL 76-115 (315)- - BUN 12 mg/dL 5-23 Creatinine 0.9 mg/dL 0.5-1.4 Glom Filtration Rate, Estimate >60 mL/min >60 If >60 mL/min >60 45 BUN/Creat 13.3 ratio Sodium 142 mmol/L 136-145 Potassium 3.6 mmol/L 3.5-5.1 Chloride 110 mmol/L High 98-107 Carbon Dioxide 24 mEq/L 18-29 Anion Gap 12 mEq/L 8-16 Calcium 9.0 mg/dL 8.5-10.1 Laboratory test 05/26/2012 [facility] Lipase 123 U/L 28-380 finding [...] High 28.0-68.0 Lymph % 23.9 % 17.0-46.1 [place] % 5.8 % 4.3-13.2 Eo% 1.4 % 0.0-6.6 Bas% 0.3 % 0.0-1.1 Neut# 5.37 K/uL 1.0-7.0 Lymph # 1.87 K/uL 0.8-3.4 [place] # 0.45 K/uL 0.0-0.6 Eos # 0.11 K/uL 0.0-0.5 Baso # 0.02 K/uL 0.0-0.1 Laboratory test 05/26/2012 [facility] Urine HCG NEGATIVE Negative 46 finding (315)- - (Qualitative) Urine Screen 05/26/2012 [facility] Urine Color YELLOW Yellow (315)- - Urine Clarity CLEAR Clear Urine Glucose - Dipstick NEGATIVE mg/dL Negative Urine Bilirubin - Dipstick NEGATIVE Negative Urine Ketone NEGATIVE mg/dL Negative Urine Specific [place] 1.010 1.010-1.030 Urine Blood NEGATIVE Negative Urine PH 8.0 High 6.5-7.5 Urine Protein - Dipstick NEGATIVE mg/dL Negative Urine Urobilinogen - Dipstick 0.2 E.U./dL 0.2-1.0 Urine Nitrite - Dipstick NEGATIVE Negative Urine Leuk Esterase NEGATIVE Negative Affirm 08/21/2011 [facility] Trichomonas Vaginalis Negative Negative Gardnerella Vaginalis Positive Abnormal Negative Марина Species Positive Abnormal Negative Laboratory test finding 08/01/2011 [facility] Pap SEE NOTE 47 Laboratory test finding 08/01/2011 [facility] GC by Dna Probe NEGATIVE Negative Urine Culture Microbiology res <SEE NOTE> 48 Affirm 08/01/2011 [facility] Trichomonas Vaginalis Negative Negative Gardnerella Vaginalis Positive Abnormal Negative Марина Species Negative Negative Laboratory test 03/20/2011 [facility] Rubella Igg AB 39.6 IU/mL 49, 50 finding Laboratory test 03/20/2011 [facility] Measles Igg AB 1.99 ELFA 51 finding Laboratory test 09/30/2010 [facility] 52 finding [phone] Allia <SEE NOTE> Affirm 09/30/2010 [facility] Trichomonas Negative Negative Vaginalis Gardnerella Vaginalis Positive Abnormal Negative Марина Species Negative Negative Laboratory test finding 09/30/2010 [facility] GC by Dna Probe NEGATIVE Negative Urine Culture Microbiology res <SEE NOTE> 53 Laboratory test finding 09/30/2010 [facility] Pap SEE NOTE 54 HPV Negative Negative 55 Wound Culture - 04/25/2010 [facility] (Do not Use) Wound Culture - (SEE NOTE) [address] [facility] [place], [place] [id number] [phone] Specimen Description - LA N/A Special Requests - LA N/A Result - LA N/A Report Status - LA N/A 1 This sample is drawn by:SAHRA/TEREZA 2 Microbiology results SOURCE Clean Catch Midstream FINAL RESULT No growth 3 This sample is drawn by:sahra/jarrod 4 Microbiology results SOURCE Random urine FINAL RESULT No growth 5 This sample is drawn by:kait/duncan 6 Updated reference range on new analyzer 7 Updated reference range on new analyzer 8 Concerning GFR Guidelines for Americans: Normal function or mild renal disease, if clinically at risk: >/=60 mL/min Moderately decreased: 30-59 Severely decreased: 15-29 Renal failure: <15 9 Concerning GFR Guidelines: Normal function or mild [...] drugs that are excreted by the kidneys. 10 Updated Reference Range 11 ABDOM PAIN, UTI 12 THERAPEUTIC INR RANGE: 2.0 - 3.0 DVT, Pulmonary embolus, prophylaxis against venous thrombosis or systemic embolization in high risk patients. 2.5 - 3.5 Mechanical heart valves 13 Tests: crp Instructions: 14 Note: Persistent reduction for 3 months or more in an eGFR <60 mL/min/1.73 m2 defines CKD. Patients with eGFR values >/=60 mL/min/1.73 m2 may also have CKD if evidence of persistent proteinuria is present. The original MDRD equation for estimated GFR is not valid for patients less than 18 years of age. Additional information may be found at [email or web address]. 15 Tests: CRP Instructions: 16 SEVERE ABD PAIN L SIDE 17 Note: Persistent reduction for 3 months or more in an eGFR <60 mL/min/1.73 m2 defines CKD. Patients with eGFR values >/=60 mL/min/1.73 m2 may also have CKD if evidence of persistent proteinuria is present. The original MDRD equation for estimated GFR is not valid for patients less than 18 years of age. Additional information may be found at [email or web address]. 18 Values below the stated reference ranges of AST and ALT can be seen in normal populations. Clinical correlation is suggested. 19 Method: Quidel QuickVue One-Step Immunoassay 20 POSSIBLE UROGENITAL CONTAMINATION. 21 URINE, CLEAN CATCH 22 ABDOM PAIN, UTI 23 NO GROWTH: FINAL REPORT 24 RIGHT SIDE PAIN 25 10,000 - 50,000 CFU/mL 26 POSSIBLE UROGENITAL CONTAMINATION. 27 URINE, CLEAN CATCH 28 Method: Quidel QuickVue One-Step Immunoassay 29 Note: Persistent reduction for 3 months or more in an eGFR <60 mL/min/1.73 m2 defines CKD. Patients with eGFR values >/=60 mL/min/1.73 m2 may also have CKD if evidence of persistent proteinuria is present. The original MDRD equation for estimated GFR is not valid for patients less than 18 years of age. Additional information may be found at [email or web address]. 30 Values below the stated reference ranges of AST and ALT can be seen in normal populations. Clinical correlation is suggested. 31 SPECIMEN DESCRIPTION STOOL SPECIAL REQUESTS NONE [...] Unless otherwise specified, testing performed by [facility] [employer] [address] [place] [phone] 32 SPECIMEN DESCRIPTION STOOL SPECIAL REQUESTS NONE RESULT [...] Unless otherwise specified, testing performed by [facility] [address] [place] [phone] 33 PERFORMED AT [address] [place] [id number] Unless otherwise specified, testing performed by [facility] [address] [place] [address] 34 SPECIMEN DESCRIPTION STOOL SPECIAL REQUESTS NONE RESULT NEGATIVE FOR GIARDIA ANTIGEN BY IMMUNOASSAY NEGATIVE FOR CRYPTOSPORIDIUM ANTIGEN BY IMMUNOAS SAY REPORT STATUS FINAL 08/29/2016 Unless otherwise specified, testing performed by [facility] [address] [place] [address] 35 NOTE: IF REFLEX CULTURE FOR KLEBSIELLA OXYTOCA IS CLINICALLY INDICATED, PLEASE CONTACT THE MICROBIOLOGY LABORATORY ([phone]) WITHIN 3 DAYS OF THIS REPORT. Unless otherwise specified, testing performed by [facility] [address] [place] [phone] 36 Microbiology results SOURCE MIDU FINAL RESULT No growth 37 FIRST MORNING SPECIMENS GENERALLY CONTAIN THE HIGHEST CONCENTRATION OF HCG AND ARE RECOMMENDED FOR EARLY DETECTION OF . 38 Microbiology results SOURCE MIDU FINAL RESULT No growth 39 COLONY COUNT ! 50,000 - 60,000 CFU/ml [...] PIPERACILLIN R CEFTRIAXONE R VANCOMYCIN 1 S 40 03/15/13 [email or web address] De[facility] by [facility] 41 CULTURE TO FOLLOW 42 FIRST MORNING SPECIMENS GENERALLY CONTAIN THE HIGHEST CONCENTRATION OF HCG AND ARE RECOMMENDED FOR EARLY DETECTION OF . 43 Microbiology results SOURCE MIDU FINAL RESULT No growth 44 Microbiology results SOURCE MIDU FINAL RESULT No growth 45 Note: Persistent reduction for 3 months or more in an eGFR <60 mL/min/1.73 m2 defines CKD. Patients with eGFR values >/=60 mL/min/1.73 m2 may also have CKD if evidence of persistent proteinuria is present. The original MDRD equation for estimated GFR is not valid for patients less than 18 years of age. Additional information may be found at [email or web address]. 46 FIRST MORNING SPECIMENS GENERALLY CONTAIN THE HIGHEST CONCENTRATION OF HCG AND ARE RECOMMENDED FOR EARLY DETECTION OF . [address] [employer] Formerly [facility], [facility]–[address] [place] [address] GYNECOLOGIC CYTOLOGY REPORT Accession Number: [id number] Source of Specimen(s): A: [facility] Vaginal/ Cervical/ [...] 08/04/2011 Electronically Signed Out By Salima MOJICA(ASCP) [facility] dss Unless otherwise specified, testing performed by [employer] [address] [place] [id number] 48 Microbiology results SOURCE MIDU RESULT No growth 49 This sample is drawn by:KD/NET APPLICATIONS DEVELOPER 50 RUBELLA INTERPRETATION: NEGATIVE <10.0 IU/ML BORDERLINE 10.0 - 14.9 IU/ML POSITIVE > OR=15.0 IU/ML VALUES OF 15.0 IU/ML OR GREATER INDICATE IMMUNIZATION OR PAST INFECTION. BORDERLINE RESULTS ARE CONFIRMED. THE MAGNITUDE OF THE REPORTED IGG LEVEL CANNOT BE CORRELATED TO AN ENDPOINT TITER. Unless otherwise specified, testing performed by [employer] [facility], [facility] [place] [address] 51 MEASLES INTERPRETATION: NEGATIVE <0.50 ELFA UNITS BORDERLINE 0.50 - 0.69 ELFA UNITS LOW LEVEL 0.70 - 1.90 ELFA UNITS MED. LEVEL 1.91 - 2.70 ELFA UNITS HIGH LEVEL >2.70 ELFA UNITS VALUES OF 0.70 OR GREATER INDICATE IMMUNIZATION OR PAST INFECTION. BORDERLINE RESULTS ARE CONFIRMED IN DUPLICATE. Unless otherwise specified, testing performed by [employer] [facility] [address] [place] [phone] [address] [place] [address] [employer] Hybrid Capture II HPV Test Accession Number [id number] Specimen(s) Received A: [facility] SP Vaginal/ Cervical/ Endocervical Pap Smear - One Vial Other Case Numbers: [id number] Diagnosis RISK GROUPS HPV TYPES RESULTS High Risk (16, 18, 31, 33, 35, 39, 45, 51, 52, 56, 58, 59, 68) NEGATIVE Comments The performance characteristics of the SurePath cell pellet specimen tested for this assay were validated by [email or web address] and licensed for use by the [facility]. This test has not been licensed by the FDA and the result is not intended to be used as the sole means for clinical diagnosis or patient management. Negative results do not rule out the presence of disease. Reported: 10/05/2010 15:44 Electronically Signed Out By Jaimie Zarate ssa 53 Microbiology results SOURCE MIDU RESULT No Growth 54 [facility]. [address] [place] [address] GYNECOLOGIC CYTOLOGY REPORT Accession Number: [id number] Source of Specimen(s): A: SurePath Vaginal/ Cervical/ [...] 10/05/2010 Electronically Signed Out By Catarina MOJICA(ASCP) [facility] Unless otherwise specified, testing performed by [employer] [address] [place] [id number] Unless otherwise specified, testing performed by [employer]. [address] [place] [address] [id number] 56 SPECIMEN DESCRIPTION BUTTOCKS SPECIAL REQUESTS NONE GRAM STAIN MODERATE (10 TO 25/LPF) WHITE BLOOD CELLS NO EPITHELIAL CELLS MODERATE (5 TO 10/OIF) GRAM POSITIVE COCCI FEW (1 TO 5/OIF) GRAM NEGATIVE RODS CULTURE RESULTS NO GROWTH REPORT STATUS FINAL 04/27/2010 Unless otherwise specified, testing performed by [facility] [employer] [address] [place] [id number] Procedures Date Code Description Status 02/21/2018 70559 Physical Performance Test Or Measurement W/Report, Each 15 Completed Min 04/20/2015 69666 Measure Blood Oxygen Level Single Determination Completed 11/07/2013 89023 Measure Blood Oxygen Level Single Determination Completed 05/11/2011 04468 Destruction Benign Lesions Other Than Skin Tags Up To 14 Completed Lesions 05/01/2011 95354 Destruction Benign Lesions Other Than Skin Tags Up To 14 Completed Lesions 04/14/2011 75392 Destruction Benign Lesions Other Than Skin Tags Up To 14 Completed Lesions 04/04/2011 13925 Destruction Benign Lesions Other Than Skin Tags Up To 14 Completed Lesions 03/24/2011 15137 Destruction Benign Lesions Other Than Skin Tags Up To 14 Completed Lesions 04/25/2010 06962 I & D Pilonidal Cyst Simple Completed Encounters Type Date Location Provider Dx Diagnosis Office Visit 06/04/2018 11:00a Pia Kevin, N.P. R30.0 Dysuria Office Visit 05/30/2018 8:45a Pia Kevin, N.P. M54.2 Cervicalgia Office Visit 05/27/2018 11:30a Pia Kevin, N.P. R00.2 Palpitations R07.89 Other chest pain Office Visit 05/20/2018 8:00a Pia Kevin, R51 Headache N.P. Office Visit 02/26/2018 11:45a Pia Kevin, N30.90 Cystitis, N.P. unspecified without hematuria N76.0 Acute vaginitis Office Visit [...] Brooke, V04.81 Need For Prophylactic 11:00a Pia N.PDereck Vaccination & Inoculation/Influenza 611.79 Breast Signs & [...] Visit 08/01/2011 8:15a Pia Kevin, V72.31 Routine [employer]or N.P. Examination 788.1 Dysuria 789.9 Abdomen & Pelvis Symptoms Other V74.5 Screening Examination Venereal Disease Office Visit 03/20/2011 8:30a Pia Kevin, V20.2 Exam Infant Or N.P. Child Routine Health Check V74.1 Screening Examination Pulmonary Tuberculosis Office Visit 03/15/2011 3:15p Pia Kevin, 078.12 Plantar Wart N.P. Office Visit 09/30/2010 11:00a Pia Kevin, V20.2 Exam Infant Or N.P. Child Routine Health Check V72.31 Routine [employer]or Examination V74.5 Screening Examination Venereal Disease Office Visit 04/25/2010 10:30a Pia Kevin, 685.0 Pilonidal Cyst W/ N.P. Abscess Plan of Treatment Future Appointment(s):06/21/2018 8:30 am - Pia Brooke, N.P. at [id number] - Pia Brooke N.P.R07.89 Other chest painComments:reviewed ER report, EKG and CXR from 2 weeks ago and all normalsusoect non-cardiac origin of CPshe is to f/u labs and report worsening sympstry rinitadine as f/u 7-10 daysR50.9 Fever, unspecifiedComments:f/u labsAllNew Medication:Ranitidine HCL 150 mg - 1 by mouth twice a day
--- OUTSIDE RECORDS SUMMARY | 2018-06-28 18:06 | XMS REPORT | Continuity of Care Document ---
:1995 External Reference #:[id number] Author Name Pia Brooke [place] Address [address] [place] [id number] Care Team Providers Name Role Phone Pia Brooke N.P. Care Team Information Capacitor Tester Unavailable Payers Type Date Identification Numbers Payment Provider Subscriber Effective: 2016 Policy Number: [id number] [facility] Bridgett Spears PayID: [id number] [address] [place] [address] PayID: [id number] [facility] Bridgett Spears [address] [place] [address] Effective: 2014 Policy Number: [id number] Medicaid ### >11 Bridgett Spears Expires: 2016 PayID: [id number] [address] [place] [address] Advance Directives Description No Information Available Problems Date Description Provider Status Onset: 08/25/2016 Cyst of ovary Pia Brooke, N.P. 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 days Ranitidine HCL 06/17/ Active Tablets 150mg 30tabs 1 by mouth Edwardo, 2018 twice a Mashelle, day N.P. Physical 05/30/ Active evaluate Edwardo, Therapy 2018 and treat Mashelle, neck and N.P. shoulder pain dx: pain Ciprofloxacin 06/04/ Hx Tablets 500mg 6tabs 1 by mouth [place], HCL 2018 - twice a Mashelle, 06/17/ [...] Tablets 50mg 24tabs 1 by mouth Edwardo, 2015 - every 6-8h Mashelle, 08/25/ as needed N.P. 2016 pain Zithromax Z-True 04/20/ Hx Tablets 250mg 1tabs as Edwardo, 2014 - directed Mashelle, 11/01/ N.P. 2016 Cheratussin ac 04/20/ Hx Syrup 100-10mg/5 236ml 1 teaspoon Edwardo, 2014 - ML every 4-6 Mashelle, 11/01/ h as N.P. 2016 needed cough Work Note Hx no work Edwardo, 2014 - today [...] Note Hx no work Edwardo, 2013 - 11/07/13-51 Mashelle, for N.P. 2013 medical reasons Ibuprofen 01/09/ Hx Tablets 600mg 30tabs 1 po qid Edwardo, 2012 - with food Mashelle, 04/08/ N.P. 2013 Bactrim DS 08/13/ Hx Tablets 800-160mg 10tabs 1 po bid x Edwardo, 2012 - 5 days Mashelle, 11/07/ N.P. 2013 Hydrocodone/Kirk 05/29/ Hx Tablets 5-325mg 24tabs 1 po q Edwardo, taminophen 2011 - 4-6h prn Mashelle, 11/07/ pain N.P. 2013 Acetaminophen/C 02/19/ Hx Tablets 300-30mg 12tabs 1-2 po q [place], odeine #3 2012 - 4-6 hours Mashelle, 05/28/ prn pain N.P. 2011 Ortho Evra 11/21/ Hx Patches 150-20mcg/ 18unit apply [place], 2011 - [facility] every week N.P. 2011 as directed [...] - was seen , in our N.P. 2012 office today for [...] Tablets 300-30mg 24tabs 1 -2 po q [place], #3 2009 - 4-6 hours Pia, 09/30/ prn pain N.P. 2010 School Note 04/25/ Hx no sports Edwardo, 2009 - or gym for Pia, 09/30/ 2 weeks N.P. 2010 Norgestim-Eth / Hx Tablets 0.18/0.215 Unknown [place]ad 0000 - /0.25 Triphasic 06/17/ mg-35 mcg 2017 Medications Administered in Office Medication Date Status Form Strength Qnty SIG Indications Ordering Provider PPD Administered Injection Edwardo, 1 Pia N.P. Immunizations CPT Code Status Date Vaccine Lot # [id number] Given 01/15/2018 Tdap (Adacel) Ages 7 And Above Only [id number] Given 01/15/2018 Tdap (Adacel) Ages 7 And Above Only 98144 Given 04/08/2014 Afluria Or Fluvirin Flu Vac Intramuscular [id number] 56614 Given 02/15/2007 Tdap (Adacel) Ages 7 And Above Only [id number] 30889 Given 02/15/2007 HPV Vaccine (Gardasil) 3 Dose Schedule [id number] 64268 Given 11/22/1998 IPV / Poliomyelitis Immunization 61014 Given 11/22/1998 MMR Virus Immunization 02652 Given 11/22/1998 DTP Immunization 54834 Given 02/04/1996 Hib ACTHiB Vaccine 4 Dose Schedule 21273 Given 02/04/1996 DTP Immunization 03662 Given 02/09/1995 Hepatitis B Vac Ped/Adolescent 3 Dose Schedule 63072 Given 02/03/1995 MMR Virus Immunization 98715 Given 1994 IPV / Poliomyelitis Immunization 65516 Given 1994 DTP Immunization 96422 Given 1994 Hib ACTHiB Vaccine 4 Dose Schedule 97969 Given 1994 Hepatitis B Vac Ped/Adolescent 3 Dose Schedule 77222 Given 1994 IPV / Poliomyelitis Immunization 94709 Given 1994 DTP Immunization 15149 Given 1994 Hib ACTHiB Vaccine 4 Dose Schedule 31666 Given 1994 Hepatitis B Vac Ped/Adolescent 3 Dose Schedule 98962 Given 1994 IPV / Poliomyelitis Immunization 39071 Given 1994 DTP Immunization 06921 Given 1994 Hib ACTHiB Vaccine 4 Dose Schedule 77004 Refused 04/21/2018 HPV Vaccine (Gardasil) 3 Dose Schedule 49748 Refused 04/21/2018 Influenza Vac, Quadrivalent, Split, 0.5mL Dosage, Im Use Vital Signs Date Vital Result Comment 06/21/2018 8:13am Body Temperature 99.0 F Weight 113.12 lb Heart Rate 105 /min BP Systolic 117 mmHg BP Diastolic 84 mmHg O2 % BldC Oximetry 99 % 06/17/2018 11:12am Body Temperature 99.0 F Weight [...] Range Note CBC with Auto Diff-fcmg 06/17/2018 [place] WBC 6.5 K/uL 4.1-11.0 1 RBC 4.87 [...] Basophils 0.0 K/uL 0.0-0.3 Laboratory test 06/17/2018 [facility] CRP (C-Reactive) <0.02 mg/dL 0.00- 0.75 finding Lyme Igm/Igg AB 06/17/2018 [facility] Lyme Igm/Igg AB NEGATIVE (Neg) 2 -RL @ Laboratory test 06/04/2018 [facility] Urine Culture Microbiology res 3 finding <SEE NOTE> Laboratory test 05/27/2018 [facility] TSH 1.57 uIU/mL 0.35-4.94 4 finding Laboratory test 02/26/2018 [facility] Urine Culture Microbiology res 5 finding <SEE NOTE> Comprehensive Met 02/11/2018 [facility] Sodium 138 mmol/L 135-146 6, 7 Panel-FCMG Potassium 4.2 mmol/L 3.5-5.2 Chloride# 106 mmol/L 97-110 8 Carbon Dioxide 22 mmol/L Low 24-34 Glucose 92 mg/dL 70-105 BUN 6 mg/dL 6-26 Creatinine 0.6 mg/dL 0.5-1.4 Calcium 8.9 mg/dL 8.5-10.2 Total Protein 6.4 g/dL 6.0-8.0 Albumin 4.1 g/dL 3.6-4.9 Globulin 2.3 g/dL 2.0-3.5 A/G Ratio 1.8 Ratio 1.0-2.2 Total Bilirubin 0.3 mg/dL 0.1-1.3 Alkaline Phosphatase 43 U/L 24-140 Alt 6 U/L 3-42 Ast 9 U/L 8-42 Beatris Egfr >60 >60 9 Non Beatris Egfr >60 >60 10 Anion Gap 10 mmol/L 5-15 11 CBC with Auto Diff-fcmg 02/11/2018 [facility] WBC [...] Basophils 0.1 K/uL 0.0-0.3 Laboratory test 02/11/2018 [facility] Magnesium 2.2 mg/dL 1.5-2.7 finding Protime 02/03/2018 [facility] Protime 15.6 seconds High 12.0-14.4 12 (315)- - Inr 1.2 High 0.9-1.1 13 Laboratory test 02/03/2018 [facility] Act Partial 27.0 seconds N 23.4-35.0 finding (315)- - Thrombo Time Aot Request 02/03/2018 [facility] Aot Request Test(s) added 14 (315)- - Tests to be added: crp Basic Metabolic Panel 02/03/2018 [facility] Glucose 130 mg/dL High 74-106 (315)- - BUN 4 mg/dL Low 7-18 Creatinine 0.6 mg/dL N 0.6-1.3 Glom Filtration Rate, Estimate >60 mL/min >60 If >60 mL/min >60 15 BUN/Creat 6.6 ratio Sodium 143 mmol/L N 136-145 Potassium 3.4 mmol/L Low 3.5-5.1 Chloride 112 mmol/L High 98-107 Carbon Dioxide 23 mmol/L N 21-32 Anion Gap 8 mEq/L N 8-16 Calcium 7.9 mg/dL Low 8.5-10.1 Laboratory test 02/03/2018 [facility] Magnesium 1.7 mg/ dL Low 1.8-2.4 finding (315)- - C-Reactive Protein,Quant 6.2 mg/L High <3.0 CBC 02/03/2018 [facility] White Blood Count 12.2 K/uL High 3.1-10.7 [...] 11.6 fL N 8.9-12.4 Aot Request 02/02/2018 [facility] Aot Request Test(s) added 16 (315)- - Tests to be added: CRP Lactic Acid 02/02/2018 [facility] Lactic Acid 0.9 mmol/L N 0.4-1.9 (315)- - Lab Reflex >2.0 for Sepsis? Y CBS W/Automated 02/01/2018 [facility] White Blood 11.6 K/ uL High 3.1-10.7 17 Diff (315)- - Count Red Blood Count [...] 40.4-72.8 Lymph % 32.7 % N 20.0-42.0 Hanson % 6.5 % N 4.3-13.2 Eo% 1.6 % N 0.0-6.6 Bas% 0.3 % N 0.0-1.1 Neut# 6.83 K/uL N 1.8-7.0 Lymph # 3.79 K/uL N 1.0-4.0 Hanson # 0.75 K/uL N 0.3-0.9 Eos # 0.19 K/uL N 0.0-0.5 Baso # 0.03 K/uL N 0.0-0.1 Comprehensive Metabolic 02/01/2018 [facility] Glucose 122 mg/dL High 74-106 Panel (315)- - BUN 8 mg/dL N 7-18 Creatinine 0.8 mg/dL N 0.6-1.3 Glom Filtration Rate, Estimate >60 mL/min >60 If >60 mL/min >60 18 BUN/Creat 10.0 ratio Sodium 143 mmol/L N [...] N 0.2-1.0 Sgot/Ast 11 U/L Low 15-37 19 SGPT/Alt 14 U/L N 12-78 Alkaline Phosphatase 52 U/L N 45-117 Laboratory test finding 02/01/2018 [facility] Lipase 207 U/L N 56-289 (315)- - HCG,Serum (Qualitative) NEGATIVE (Negative) 20 C-Reactive Protein,Quant < 2.9 mg/L <3.0 Urinalysis With 02/01/2018 [facility] Urine Color YELLOW Yellow Microscopic (315)- - Urine Clarity SL CLOUDY Clear Urine Glucose - Dipstick NEGATIVE mg/dL Negative Urine Bilirubin - Dipstick NEGATIVE Negative Urine Ketone NEGATIVE mg/dL Negative Urine Specific [place] 1.025 N 1.010-1.030 Urine Blood NEGATIVE Negative Urine PH 6.0 Low 6.5-7.5 Urine Protein - Dipstick NEGATIVE mg/dL Negative Urine Urobilinogen - Dipstick 0.2 E.U./dL N 0.2-1.0 Urine Nitrite - Dipstick NEGATIVE Negative Urine Leuk Esterase MODERATE Abnormal Negative Urine RBC 0-2 rbc/hpf 0-2 Urine WBC 20-30 wbc/hpf High 0-7 Urine Epithelial Cells MANY /lpf None Seen 21 Urine Bacteria MODERATE Abnormal None Seen Urine Amorph Sediment SMALL Negative Source: URINE, CLEAN CAT <SEE NOTE> 22 Laboratory test 02/01/2018 [facility] Urine Culture NO GROWTH: 23, 24 finding (315)- - FINAL <SEE NOTE> Urine Culture 08/06/2017 [facility] Urine Culture URETHRAL JONELLE 25 (315)- - Quantity 10,000 - 50,000 <SEE NOTE> 26 Urinalysis With 08/06/2017 [facility] Urine Color YELLOW Yellow Microscopic (315)- - Urine Clarity SL CLOUDY Clear Urine Glucose - Dipstick NEGATIVE mg/dL Negative Urine Bilirubin - Dipstick NEGATIVE Negative Urine Ketone NEGATIVE mg/dL Negative Urine Specific [place] >=1.030 N 1.010-1.030 Urine Blood NEGATIVE Negative Urine PH 5.5 Low 6.5-7.5 Urine Protein - Dipstick NEGATIVE mg/dL Negative Urine Urobilinogen - Dipstick 0.2 E.U./dL N 0.2-1.0 Urine Nitrite - Dipstick NEGATIVE Negative Urine Leuk Esterase TRACE Abnormal Negative Urine RBC NONE SEEN rbc/hpf 0-2 Urine WBC 10-20 wbc/hpf High 0-7 Urine Epithelial Cells MANY /lpf None Seen 27 Urine Mucus SMALL None Seen Source: URINE, CLEAN CAT <SEE NOTE> 28 Laboratory test finding 08/06/2017 [facility] Lipase 163 U/L N 56-289 (315)- - HCG,Serum (Qualitative) NEGATIVE (Negative) 29 Comprehensive Metabolic 08/06/2017 [facility] Glucose 93 mg/dL N 74-106 Panel (315)- - BUN 11 mg/dL N 7-18 Creatinine 0.8 mg/dL N 0.6-1.3 Glom Filtration Rate, Estimate >60 mL/min >60 If >60 mL/min >60 30 BUN/Creat 13.7 ratio Sodium 140 mmol/L N [...] N 0.2-1.0 Sgot/Ast 5 U/L Low 15-37 31 SGPT/Alt 15 U/L N 12-78 Alkaline Phosphatase 49 U/L N 45-117 CBS W/Automated Diff 08/06/2017 [facility] White Blood 7.2 K/uL N [...] 40.4-72.8 Lymph % 22.6 % N 20.0-42.0 Hanson % 6.7 % N 4.3-13.2 Eo% 1.5 % N 0.0-6.6 Bas% 0.3 % N 0.0-1.1 Neut# 4.93 K/uL N 1.8-7.0 Lymph # 1.62 K/uL N 1.0-4.0 Hanson # 0.48 K/uL N 0.3-0.9 Eos # 0.11 K/uL N 0.0-0.5 Baso # 0.02 K/uL N 0.0-0.1 Stool Panel 08/28/2016 [facility] Enteric Pathogens By PCR SEE NOTE 32 Giard/Cryptosp Exam SEE NOTE 33 Lactoferrin,Fecal NEGATIVE (Neg) 34 Crypto/Giard Antigen 08/28/2016 [facility] Crypto/Giard Antigen SEE NOTE 35 C Diff Toxin B/PCR-RL 08/28/2016 [facility] Specimen Description STOOL C Diff Toxin B NEGATIVE (Neg) 027 Nap1 B1 NEGATIVE (Neg) Comment NOTE: IF REFLEX <SEE NOTE> 36 Laboratory test 11/02/2015 [facility] Urine Culture Microbiology res 37 finding <SEE NOTE> Urine HCG 07/24/2014 [facility] Urine HCG NEGATIVE Negative 38 (Qualitative) (315)- - (Qualitative) Laboratory test 06/03/2013 [facility] Urine Culture Microbiology res 39 finding <SEE NOTE> Urine Culture 03/15/2013 [facility] Urine Culture See Note 40 (315)- - Urine Screen 03/15/2013 [facility] Urine Screen See Note 41 (315)- - Laboratory test 03/15/2013 [facility] Culture If See Note 42 finding (315)- - Indicated Comment Urinalysis With 03/15/2013 [facility] Urine Color YELLOW Yellow Microscopic (315)- - Urine Clarity CLEAR Clear Urine Glucose - Dipstick NEGATIVE mg/dL Negative Urine Bilirubin - Dipstick NEGATIVE Negative Urine Ketone NEGATIVE mg/dL Negative Urine Specific [place] <=1.005 Low 1.010-1.030 Urine Blood TRACE Negative Urine PH 5.5 Low 6.5-7.5 Urine Protein - Dipstick NEGATIVE mg/dL Negative Urine Urobilinogen - Dipstick 0.2 E.U./dL 0.2-1.0 Urine Nitrite - Dipstick NEGATIVE Negative Urine Leuk Esterase MODERATE High Negative Urine RBC 0-2 rbc/hpf 0-7 Urine WBC 30-50 wbc/hpf High 0-7 Urine Epithelial Cells FEW NONESEEN/lpf Urine Bacteria FEW NONESEEN Urine HCG 03/15/2013 [facility] Urine HCG NEGATIVE Negative 43 (Qualitative) (315)- - (Qualitative) Laboratory test 01/09/2013 [facility] Urine Culture Microbiology 44 finding res <SEE NOTE> Laboratory test 08/13/2012 [facility] Urine Culture Microbiology 45 finding res <SEE NOTE> Liver Function 05/26/2012 [facility] Total Protein 7.0 g/ dL 6.3-8.0 Tests (315)- - Albumin 3.7 g/dL 3.5-5.0 Globulin 3.3 g/dL 1.9-4.3 Alb/Glob 1.1 ratio Bilirubin,Total 0.2 mg/dL 0.2-1.2 Bilirubin,Direct < 0.1 mg/dL Low 0.1-0.4 Bilirubin,Indirect 0.1 mg/dL 0.0-0.9 Sgot/Ast 10 U/L Low 16-40 SGPT/Alt 18 U/L Low 30-65 Alkaline Phosphatase 67 U/L 50-136 Basic Metabolic Panel 05/26/2012 [facility] Glucose 98 mg /dL 76-115 (315)- - BUN 12 mg/dL 5-23 Creatinine 0.9 mg/dL 0.5-1.4 Glom Filtration Rate, Estimate >60 mL/min >60 If >60 mL/min >60 46 BUN/Creat 13.3 ratio Sodium 142 mmol/L 136-145 Potassium 3.6 mmol/L 3.5-5.1 Chloride 110 mmol/L High 98-107 Carbon Dioxide 24 mEq/L 18-29 Anion Gap 12 mEq/L 8-16 Calcium 9.0 mg/dL 8.5-10.1 Laboratory test 05/26/2012 [facility] Lipase 123 U/L 28-380 finding (315)- - CBC W/Automated 05/26/2012 [facility] White Blood 7.8 K/ uL 3.1-10.7 [...] High 28.0-68.0 Lymph % 23.9 % 17.0-46.1 Hanson % 5.8 % 4.3-13.2 Eo% 1.4 % 0.0-6.6 Bas% 0.3 % 0.0-1.1 Neut# 5.37 K/uL 1.0-7.0 Lymph # 1.87 K/uL 0.8-3.4 Hanson # 0.45 K/uL 0.0-0.6 Eos # 0.11 K/uL 0.0-0.5 Baso # 0.02 K/uL 0.0-0.1 Laboratory test 05/26/2012 [facility] Urine HCG NEGATIVE Negative 47 finding (315)- - (Qualitative) Urine Screen 05/26/2012 [facility] Urine Color YELLOW Yellow (315)- - Urine Clarity CLEAR Clear Urine Glucose - Dipstick NEGATIVE mg/dL Negative Urine Bilirubin - Dipstick NEGATIVE Negative Urine Ketone NEGATIVE mg/dL Negative Urine Specific [place] 1.010 1.010-1.030 Urine Blood NEGATIVE Negative Urine PH 8.0 High 6.5-7.5 Urine Protein - Dipstick NEGATIVE mg/dL Negative Urine Urobilinogen - Dipstick 0.2 E.U./dL 0.2-1.0 Urine Nitrite - Dipstick NEGATIVE Negative Urine Leuk Esterase NEGATIVE Negative Affirm 08/21/2011 [facility] Trichomonas Vaginalis Negative Negative Gardnerella Vaginalis Positive Abnormal Negative Марина Species Positive Abnormal Negative Laboratory test finding 08/01/2011 [facility] Pap SEE NOTE 48 Laboratory test finding 08/01/2011 [facility] GC by Dna Probe NEGATIVE Negative Urine Culture Microbiology res <SEE NOTE> 49 Affirm 08/01/2011 [facility] Trichomonas Vaginalis Negative Negative Gardnerella Vaginalis Positive Abnormal Negative Марина Species Negative Negative Laboratory test 03/20/2011 [facility] Rubella Igg AB 39.6 IU/mL 50, 51 finding Laboratory test 03/20/2011 [facility] Measles Igg AB 1.99 ELFA 52 finding Laboratory test 09/30/2010 [facility] 53 finding [phone] Allia <SEE NOTE> Affirm 09/30/2010 [facility] Trichomonas Negative Negative Vaginalis Gardnerella Vaginalis Positive Abnormal Negative Марина Species Negative Negative Laboratory test finding 09/30/2010 [facility] GC by Dna Probe NEGATIVE Negative Urine Culture Microbiology res <SEE NOTE> 54 Laboratory test finding 09/30/2010 [facility] Pap SEE NOTE 55 HPV Negative Negative 56 Wound Culture - 04/25/2010 [facility] (Do not Use) Wound Culture - (SEE NOTE) 57 [facility] [place] [address] [phone] Specimen Description - LA N/A Special Requests - LA N/A Result - LA N/A Report Status - LA N/A 1 This sample is drawn by:[email or web address]/[email or web address] 2 A Negative serologic test for Lyme Disease indicates no serologic evidence of infection with B burgdorferi at the time this specimen was collected. A repeat specimen should be collected in 2 to 4 weeks if clinically indicated. Unless otherwise specified, testing performed by [facility] [address] [place] [address] 3 Microbiology results SOURCE Clean Catch Midstream FINAL RESULT No growth 4 This sample is drawn by:[email or web address]/[email or web address] 5 Microbiology results SOURCE Random urine FINAL RESULT No growth 6 This sample is drawn by:[email or web address] 7 Updated reference range on new analyzer 8 Updated reference range on new analyzer 9 Concerning GFR Guidelines for Americans: Normal function or mild renal disease, if clinically at risk: >/=60 mL/min Moderately decreased: 30-59 Severely decreased: 15-29 Renal failure: <15 10 Concerning GFR Guidelines: Normal function or mild [...] drugs that are excreted by the kidneys. 11 Updated Reference Range 2-2018 12 ABDOM PAIN, UTI 13 THERAPEUTIC INR RANGE: 2.0 - 3.0 DVT, Pulmonary embolus, prophylaxis against venous thrombosis or systemic embolization in high risk patients. 2.5 - 3.5 Mechanical heart valves 14 Tests: crp Instructions: 15 Note: Persistent reduction for 3 months or more in an eGFR <60 mL/min/1.73 m2 defines CKD. Patients with eGFR values >/=60 mL/min/1.73 m2 may also have CKD if evidence of persistent proteinuria is present. The original MDRD equation for estimated GFR is not valid for patients less than 18 years of age. Additional information may be found at [email or web address]. 16 Tests: CRP Instructions: 17 SEVERE ABD PAIN L SIDE 18 Note: Persistent reduction for 3 months or more in an eGFR <60 mL/min/1.73 m2 defines CKD. Patients with eGFR values >/=60 mL/min/1.73 m2 may also have CKD if evidence of persistent proteinuria is present. The original MDRD equation for estimated GFR is not valid for patients less than 18 years of age. Additional information may be found at [email or web address]. 19 Values below the stated reference ranges of AST and ALT can be seen in normal populations. Clinical correlation is suggested. 20 Method: Quidel QuickVue One-Step Immunoassay 21 POSSIBLE UROGENITAL CONTAMINATION. 22 URINE, CLEAN CATCH 23 ABDOM PAIN, UTI 24 NO GROWTH: FINAL REPORT 25 RIGHT SIDE PAIN 26 10,000 - 50,000 CFU/mL 27 POSSIBLE UROGENITAL CONTAMINATION. 28 URINE, CLEAN CATCH 29 Method: Quidel QuickVue One-Step Immunoassay 30 Note: Persistent reduction for 3 months or more in an eGFR <60 mL/min/1.73 m2 defines CKD. Patients with eGFR values >/=60 mL/min/1.73 m2 may also have CKD if evidence of persistent proteinuria is present. The original MDRD equation for estimated GFR is not valid for patients less than 18 years of age. Additional information may be found at [email or web address]. 31 Values below the stated reference ranges of AST and ALT can be seen in normal populations. Clinical correlation is suggested. 32 SPECIMEN DESCRIPTION STOOL SPECIAL REQUESTS NONE [...] 08/29/2016 Unless otherwise specified, testing performed by [facility] [address] [place] [address] 33 SPECIMEN DESCRIPTION STOOL SPECIAL REQUESTS NONE RESULT [...] Unless otherwise specified, testing performed by [facility] [address] [place] [address] 34 PERFORMED AT [address] [place] [address] Unless otherwise specified, testing performed by [facility] [address] [place] [address] 35 SPECIMEN DESCRIPTION STOOL SPECIAL REQUESTS NONE RESULT NEGATIVE FOR GIARDIA ANTIGEN BY IMMUNOASSAY NEGATIVE FOR CRYPTOSPORIDIUM ANTIGEN BY IMMUNOAS SAY REPORT STATUS FINAL 08/29/2016 Unless otherwise specified, testing performed by [facility] [address] [place] [address] 36 NOTE: IF REFLEX CULTURE FOR KLEBSIELLA OXYTOCA IS CLINICALLY INDICATED, PLEASE CONTACT THE MICROBIOLOGY LABORATORY ([phone]) WITHIN 3 DAYS OF THIS REPORT. Unless otherwise specified, testing performed by [facility] [address] [place] [address] 37 Microbiology results SOURCE MIDU FINAL RESULT No growth 38 FIRST MORNING SPECIMENS GENERALLY CONTAIN THE HIGHEST CONCENTRATION OF HCG AND ARE RECOMMENDED FOR EARLY DETECTION OF . 39 Microbiology results SOURCE MIDU FINAL RESULT No growth 40 COLONY COUNT ! 50,000 - 60,000 CFU/ml [...] PIPERACILLIN R CEFTRIAXONE R VANCOMYCIN 1 S 41 03/15/13 [email or web address] Deleted by [facility] 42 CULTURE TO FOLLOW 43 FIRST MORNING SPECIMENS GENERALLY CONTAIN THE HIGHEST CONCENTRATION OF HCG AND ARE RECOMMENDED FOR EARLY DETECTION OF . 44 Microbiology results SOURCE MIDU FINAL RESULT No growth 45 Microbiology results SOURCE MIDU FINAL RESULT No growth 46 Note: Persistent reduction for 3 months or more in an eGFR <60 mL/min/1.73 m2 defines CKD. Patients with eGFR values >/=60 mL/min/1.73 m2 may also have CKD if evidence of persistent proteinuria is present. The original MDRD equation for estimated GFR is not valid for patients less than 18 years of age. Additional information may be found at [email or web address]. 47 FIRST MORNING SPECIMENS GENERALLY CONTAIN THE HIGHEST CONCENTRATION OF HCG AND ARE RECOMMENDED FOR EARLY DETECTION OF . 48 [employer]. [facility] [place] [address] GYNECOLOGIC CYTOLOGY REPORT Accession Number: [id number] Source of Specimen(s): A: SurePath Vaginal/ Cervical/ [...] 08/04/2011 Electronically Signed Out By Salima MOJICA(ASCP) [facility] dss Unless otherwise specified, testing performed by [facility] [address] [address] 49 Microbiology results SOURCE MIDU RESULT No growth 50 This sample is drawn by:KD/SEAL DELIVERY VEHICLE OFFICER 51 RUBELLA INTERPRETATION: NEGATIVE <10.0 IU/ML BORDERLINE 10.0 - 14.9 IU/ML POSITIVE > OR=15.0 IU/ML VALUES OF 15.0 IU/ML OR GREATER INDICATE IMMUNIZATION OR PAST INFECTION. BORDERLINE RESULTS ARE CONFIRMED. THE MAGNITUDE OF THE REPORTED IGG LEVEL CANNOT BE CORRELATED TO AN ENDPOINT TITER. Unless otherwise specified, testing performed by [facility] [employer] [address] [address] 52 MEASLES INTERPRETATION: NEGATIVE <0.50 ELFA UNITS BORDERLINE 0.50 - 0.69 ELFA UNITS LOW LEVEL 0.70 - 1.90 ELFA UNITS MED. LEVEL 1.91 - 2.70 ELFA UNITS HIGH LEVEL >2.70 ELFA UNITS VALUES OF 0.70 OR GREATER INDICATE IMMUNIZATION OR PAST INFECTION. BORDERLINE RESULTS ARE CONFIRMED IN DUPLICATE. Unless otherwise specified, testing performed by [facility] [employer] [address] [address] [address] [place] [address] [employer] Hybrid Capture II HPV Test Accession Number [id number] Specimen(s) Received A: [facility] SP Vaginal/ Cervical/ Endocervical Pap Smear - One Vial Other Case Numbers: [id number] Diagnosis RISK GROUPS HPV TYPES RESULTS High Risk (16, 18, 31, 33, 35, 39, 45, 51, 52, 56, 58, 59, 68) NEGATIVE Comments The performance characteristics of the SurePath cell pellet specimen tested for this assay were validated by [facility] and licensed for use by the [facility] of [facility]. This test has not been licensed by the FDA and the result is not intended to be used as the sole means for clinical diagnosis or patient management. Negative results do not rule out the presence of disease. Reported: 10/05/2010 15:44 Electronically Signed Out By Jaimie Zarate ssa 54 Microbiology results SOURCE MIDU RESULT No Growth 55 [facility]. [address] [place] [address] GYNECOLOGIC CYTOLOGY REPORT Accession Number: [id number] Source of Specimen(s): A: SurePath Vaginal/ Cervical/ [...] 10/05/2010 Electronically Signed Out By Catarina MOJICA(ASCP) [facility] mcw Unless otherwise specified, testing performed by [facility] [address] [place] [address] 56 Unless otherwise specified, testing performed by [employer] [place] [place] [address] 57 SPECIMEN DESCRIPTION BUTTOCKS SPECIAL REQUESTS NONE GRAM STAIN MODERATE (10 TO 25/LPF) WHITE BLOOD CELLS NO EPITHELIAL CELLS MODERATE (5 TO 10/OIF) GRAM POSITIVE COCCI FEW (1 TO 5/OIF) GRAM NEGATIVE RODS CULTURE RESULTS NO GROWTH REPORT STATUS FINAL 04/27/2010 Unless otherwise specified, testing performed by [facility] [address] [place] [address] Procedures Date Code Description Status 02/21/2018 39774 Physical Performance Test Or Measurement W/Report, Each 15 Completed Min 04/20/2015 04697 Measure Blood Oxygen Level Single Determination Completed 11/07/2013 03524 Measure Blood Oxygen Level Single Determination Completed 05/11/2011 10277 Destruction Benign Lesions Other Than Skin Tags Up To 14 Completed Lesions 05/01/2011 86991 Destruction Benign Lesions Other Than Skin Tags Up To 14 Completed Lesions 04/14/2011 76989 Destruction Benign Lesions Other Than Skin Tags Up To 14 Completed Lesions 04/04/2011 31240 Destruction Benign Lesions Other Than Skin Tags Up To 14 Completed Lesions 03/24/2011 56454 Destruction Benign Lesions Other Than Skin Tags Up To 14 Completed Lesions 04/25/2010 29503 I & D Pilonidal Cyst Simple Completed Encounters Type Date Location Provider Dx Diagnosis Office Visit 06/21/2018 8:30a Pia Kevin, N.P. M54.2 Cervicalgia R51 Headache K29.00 Acute gastritis without bleeding Office Visit 06/17/2018 11:15a Pia Kevin, N.P. R07.89 Other chest pain R50.9 Fever, unspecified Office Visit 06/04/2018 11:00a Pia Kevin, N.P. R30.0 Dysuria Office Visit 05/30/2018 8:45a Pia Kevin, N.P. M54.2 Cervicalgia Office Visit 05/27/2018 11:30a Pia Kevin N.P. R00.2 Palpitations R07.89 Other chest pain [...] Diarrhea, unspecified Office Visit 12/22/2015 8:30a Pia Kvein, N83.29 Other ovarian N.P. cysts R10.30 Lower [...] Visit 08/01/2011 8:15a Pia Kevin, V72.31 Routine Horseradish Maker N.P. Examination 788.1 Dysuria 789.9 Abdomen & Pelvis Symptoms Other V74.5 Screening Examination Venereal Disease Office Visit 03/20/2011 8:30a Pia Kevin, V20.2 Exam Or N.P. Child Routine Health Check V74.1 Screening Examination Pulmonary Tuberculosis Office Visit 03/15/2011 3:15p Pia Kevin, 078.12 Plantar Wart N.P. Office Visit 09/30/2010 11:00a Pia Kevin, V20.2 Exam Or N.P. Child Routine Health Check V72.31 Routine Horseradish Maker Examination V74.5 Screening Examination Venereal Disease Office Visit 04/25/2010 10:30a Pia Kevin, 685.0 Pilonidal Cyst W/ N.P. Abscess Plan of Treatment 06/21/2018 - Pia Brooke, N.PDereckM54.2 CervicalgiaComments:warm packs, ibuprofen, PTR51 HeadacheComments:tylenol, report increasing pain or changing rrvsjscxzyfgmtgX36.00 Acute gastritis without bleedingComments:improved with zantaccont same for 1 more week then wean off and modify diet
--- OUTSIDE RECORDS SUMMARY | 2018-06-28 18:07 | XMS REPORT | Continuity of Care Document ---
:1995 External Reference #:[id number] Author Name Pia Brooke N.P. Address [address] [place] [id number] Care Team Providers Name Role Phone Pia Brooke N.P. Care Team Information Ob/Gyn Doctor Unavailable Payers Type Date Identification Numbers Payment Provider Subscriber Effective: 2016 Policy Number: [id number] [facility] Bridgett Spears PayID: [id number] [address] [place] [address] PayID: [id number] [facility] Bridgett Spears [address] [place] [address] Effective: 2014 Policy Number: [id number] Medicaid ### >11 Bridgett Spears Expires: 2016 PayID: [id number] [address] [place] [address] Advance Directives Description No Information Available Problems Date Description Provider Status Onset: 08/25/2016 Cyst of ovary Pia Brooke N.PDereck Active Onset: 08/14/2017 Tobacco user Pia Brooke N.Misael Active Family History Date Family Member(s) Problem(s) Comments Father Good Health Mother Good Health Maternal Uncles pilonidal cyst remval Social History Type Date Description Comments Sex Unknown Lives With Boyfriend 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 Tobacco Use Start: Unknown Never Smoked Cigarettes [...] Hx Tablets 300-30mg 12tabs 1-2 po q [place], odeine #3 2011 - 4-6 hours Mashelle, 05/28/ prn pain N.P. 2011 Ortho Evra 11/21/ Hx Patches 150-20mcg/ 18unit apply [place], 2011 - Weekly 24HR s [facility] [place], 02/15/ every week N.P. 2011 as directed [...] appl deb [facility]oke 2010 [facility]d N.P. 2011 [...] CPT Code Status Date Vaccine Lot # [id number] Given 01/15/2018 Tdap (Adacel) Ages 7 And Above Only [id number] 21283 Given 01/15/2018 Tdap (Adacel) Ages 7 And Above Only 89708 Given 04/08/2014 Afluria Or Fluvirin Flu Vac Intramuscular [id number] 04214 Given 02/15/2007 Tdap (Adacel) Ages 7 And Above Only [id number] 96358 Given 02/15/2007 HPV Vaccine (Gardasil) 3 Dose Schedule [id number] 63085 Given 11/22/1998 IPV / Poliomyelitis Immunization 82762 Given 11/22/1998 MMR Virus Immunization 22127 Given 11/22/1998 DTP Immunization 92976 Given 02/04/1996 Hib ACTHiB Vaccine 4 Dose Schedule 80234 Given 02/04/1996 DTP Immunization 31379 Given 02/09/1995 Hepatitis B Vac Ped/Adolescent 3 Dose Schedule 99295 Given 02/03/1995 MMR Virus Immunization 61969 Given 1994 IPV / Poliomyelitis Immunization 56883 Given 1994 DTP Immunization 20082 Given 1994 Hib ACTHiB Vaccine 4 Dose Schedule 83384 Given 1994 Hepatitis B Vac Ped/Adolescent 3 Dose Schedule 10136 Given 1994 IPV / Poliomyelitis Immunization 07186 Given 1994 DTP Immunization 16572 Given 1994 Hib ACTHiB Vaccine 4 Dose Schedule 54389 Given 1994 Hepatitis B Vac Ped/Adolescent 3 Dose Schedule 65844 Given 1994 IPV / Poliomyelitis Immunization 12717 Given 1994 DTP Immunization 28803 Given 1994 Hib ACTHiB Vaccine 4 Dose Schedule 82697 Refused 04/21/2018 HPV Vaccine (Gardasil) 3 Dose Schedule 70883 Refused 04/21/2018 Influenza Vac, 3 Yrs & [...] Range Note CBC with Auto Diff-fcmg 06/17/2018 [facility] WBC 6.5 K/uL 4.1-11.0 1 RBC 4.87 [...] Magnesium 2.2 mg/dL 1.5-2.7 finding Protime 02/03/2018 [facility] Protime 15.6 seconds High 12.0-14.4 11 (315)- - Inr 1.2 High 0.9-1.1 12 Laboratory test 02/03/2018 [facility] Act Partial 27.0 seconds N 23.4-35.0 finding (315)- - Thrombo Time Aot Request 02/03/2018 [facility] Aot Request Test(s) added 13 (315)- - Tests to be added: crp Basic Metabolic Panel 02/03/2018 [facility] Glucose 130 mg/dL High 74-106 (315)- - [...] 7.9 mg/dL Low 8.5-10.1 Laboratory test 02/03/2018 [facility] Magnesium 1.7 mg/ dL Low 1.8-2.4 finding (315)- - C-Reactive Protein,Quant 6.2 mg/L High <3.0 CBC 02/03/2018 [facility] White Blood Count 12.2 K/uL [...] 11.6 fL N 8.9-12.4 Aot Request 02/02/2018 [facility] Aot Request Test(s) added 15 (315)- - Tests to be added: CRP Lactic Acid 02/02/2018 [facility] Lactic Acid 0.9 mmol/L N 0.4-1.9 (315)- - Lab Reflex >2.0 for Sepsis? Y CBS W/Automated 02/01/2018 [facility] White Blood 11.6 K/ uL High 3.1-10.7 [...] 40.4-72.8 Lymph % 32.7 % N 20.0-42.0 Archer % 6.5 % N 4.3-13.2 Eo% 1.6 % N 0.0-6.6 Bas% 0.3 % N 0.0-1.1 Neut# 6.83 K/uL N 1.8-7.0 Lymph # 3.79 K/uL N 1.0-4.0 Archer # 0.75 K/uL N 0.3-0.9 Eos # 0.19 K/uL N 0.0-0.5 Baso # 0.03 K/uL N 0.0-0.1 Comprehensive Metabolic 02/01/2018 [facility] Glucose 122 mg/dL High 74-106 [...] U/L N 45-117 Laboratory test finding 02/01/2018 [facility] Lipase 207 U/L N 56-289 (315)- - HCG,Serum (Qualitative) NEGATIVE (Negative) 19 C-Reactive Protein,Quant < 2.9 mg/L <3.0 Urinalysis With 02/01/2018 [facility] Urine Color YELLOW Yellow Microscopic (315)- - Urine Clarity SL CLOUDY Clear Urine Glucose - Dipstick NEGATIVE mg/dL Negative Urine Bilirubin - Dipstick NEGATIVE Negative Urine Ketone NEGATIVE mg/dL Negative Urine Specific [place] 1.025 N 1.010-1.030 Urine Blood NEGATIVE Negative [...] CAT <SEE NOTE> 21 Laboratory test 02/01/2018 [facility] Urine Culture NO GROWTH: 22, 23 finding (315)- - FINAL <SEE NOTE> Urine Culture 08/06/2017 [facility] Urine Culture URETHRAL JONELLE 24 (315)- - Quantity 10,000 - 50,000 <SEE NOTE> 25 Urinalysis With 08/06/2017 [facility] Urine Color YELLOW Yellow Microscopic (315)- - Urine Clarity SL CLOUDY Clear Urine Glucose - Dipstick NEGATIVE mg/dL Negative Urine Bilirubin - Dipstick NEGATIVE Negative Urine Ketone NEGATIVE mg/dL Negative Urine Specific [place] >=1.030 N 1.010-1.030 Urine Blood NEGATIVE Negative [...] <SEE NOTE> 27 Laboratory test finding 08/06/2017 [facility] Lipase 163 U/L N 56-289 (315)- - HCG,Serum (Qualitative) NEGATIVE (Negative) 28 Comprehensive Metabolic 08/06/2017 [facility] Glucose 93 mg/dL N 74-106 Panel (315)- [...] U/L N 45-117 CBS W/Automated Diff 08/06/2017 [facility] White Blood 7.2 K/uL N [...] 40.4-72.8 Lymph % 22.6 % N 20.0-42.0 Archer % 6.7 % N 4.3-13.2 Eo% 1.5 % N 0.0-6.6 Bas% 0.3 % N 0.0-1.1 Neut# 4.93 K/uL N 1.8-7.0 Lymph # 1.62 K/uL N 1.0-4.0 Archer # 0.48 K/uL N 0.3-0.9 Eos # [...] 36 finding <SEE NOTE> Urine HCG 07/24/2014 [facility] Urine HCG NEGATIVE Negative 37 (Qualitative) (315)- - (Qualitative) Laboratory test 06/03/2013 [facility] Urine Culture Microbiology res 38 finding <SEE NOTE> Urine Culture 03/15/2013 [facility] Urine Culture See Note 39 (315)- - Urine Screen 03/15/2013 [facility] Urine Screen See Note 40 (315)- - Laboratory test 03/15/2013 [facility] Culture If See Note 41 finding (315)- - Indicated Comment Urinalysis With 03/15/2013 [facility] Urine Color YELLOW Yellow Microscopic (315)- - Urine Clarity CLEAR Clear Urine Glucose - Dipstick NEGATIVE mg/dL Negative Urine Bilirubin - Dipstick NEGATIVE Negative Urine Ketone NEGATIVE mg/dL Negative Urine Specific [place] <=1.005 Low 1.010-1.030 Urine Blood TRACE Negative Urine PH 5.5 Low 6.5-7.5 Urine Protein - Dipstick NEGATIVE mg/dL Negative Urine Urobilinogen - Dipstick 0.2 E.U./dL 0.2-1.0 Urine Nitrite - Dipstick NEGATIVE Negative Urine Leuk Esterase MODERATE High Negative Urine RBC 0-2 rbc/hpf 0-7 Urine WBC 30-50 wbc/hpf High 0-7 Urine Epithelial Cells FEW NONESEEN/lpf Urine Bacteria FEW NONESEEN Urine HCG 03/15/2013 [facility] Urine HCG NEGATIVE Negative 42 (Qualitative) (315)- - (Qualitative) Laboratory test 01/09/2013 [facility] Urine Culture Microbiology 43 finding res <SEE NOTE> Laboratory test 08/13/2012 [facility] Urine Culture Microbiology 44 finding res <SEE NOTE> Liver Function 05/26/2012 [facility] Total Protein 7.0 g/ dL 6.3-8.0 Tests (315)- - Albumin 3.7 g/dL 3.5-5.0 Globulin 3.3 g/dL 1.9-4.3 Alb/Glob 1.1 ratio Bilirubin,Total 0.2 mg/dL 0.2-1.2 Bilirubin,Direct < 0.1 mg/dL Low 0.1-0.4 Bilirubin,Indirect 0.1 mg/dL 0.0-0.9 Sgot/Ast 10 U/L Low 16-40 SGPT/Alt 18 U/L Low 30-65 Alkaline Phosphatase 67 U/L 50-136 Basic Metabolic Panel 05/26/2012 [facility] Glucose 98 mg /dL 76-115 (315)- - BUN 12 mg/dL 5-23 Creatinine 0.9 mg/dL 0.5-1.4 Glom Filtration Rate, Estimate >60 mL/min >60 If >60 mL/min >60 45 BUN/Creat 13.3 ratio Sodium 142 mmol/L 136-145 Potassium 3.6 mmol/L 3.5-5.1 Chloride 110 mmol/L High 98-107 Carbon Dioxide 24 mEq/L 18-29 Anion Gap 12 mEq/L 8-16 Calcium 9.0 mg/dL 8.5-10.1 Laboratory test 05/26/2012 [facility] Lipase 123 U/L 28-380 finding (315)- - CBC W/Automated 05/26/2012 [facility] White Blood 7.8 K/ uL 3.1-10.7 Diff [...] High 28.0-68.0 Lymph % 23.9 % 17.0-46.1 Archer % 5.8 % 4.3-13.2 Eo% 1.4 % 0.0-6.6 Bas% 0.3 % 0.0-1.1 Neut# 5.37 K/uL 1.0-7.0 Lymph # 1.87 K/uL 0.8-3.4 Archer # 0.45 K/uL 0.0-0.6 Eos # 0.11 K/uL 0.0-0.5 Baso # 0.02 K/uL 0.0-0.1 Laboratory test 05/26/2012 [facility] Urine HCG NEGATIVE Negative 46 finding (315)- - (Qualitative) Urine Screen 05/26/2012 [facility] Urine Color YELLOW Yellow (315)- - Urine Clarity CLEAR Clear Urine Glucose - Dipstick NEGATIVE mg/dL Negative Urine Bilirubin - Dipstick NEGATIVE Negative Urine Ketone NEGATIVE mg/dL Negative Urine Specific [place] 1.010 1.010-1.030 Urine Blood NEGATIVE Negative Urine [...] ELFA 51 finding Laboratory test 09/30/2010 [facility] 52 finding [phone] Allia <SEE NOTE> Affirm 09/30/2010 [facility] Trichomonas [...] Use) Wound Culture - (SEE NOTE) 56 [facility] [place], [place] [id number] [phone] Specimen Description - LA N/A Special Requests [...] Unless otherwise specified, testing performed by [facility] [employer] [address] [place] [id number] 32 SPECIMEN DESCRIPTION STOOL SPECIAL REQUESTS NONE [...] Unless otherwise specified, testing performed by [facility] [employer] [address] [place] [address] 33 PERFORMED AT [address] [place] [address] Unless otherwise specified, testing performed by [facility] [employer] [address] [place] [address] 34 SPECIMEN DESCRIPTION STOOL SPECIAL REQUESTS NONE RESULT NEGATIVE FOR GIARDIA ANTIGEN BY IMMUNOASSAY NEGATIVE FOR CRYPTOSPORIDIUM ANTIGEN BY IMMUNOAS SAY REPORT STATUS FINAL 08/29/2016 Unless otherwise specified, testing performed by [facility] [employer] [address] [place] [address] 35 NOTE: IF REFLEX CULTURE FOR KLEBSIELLA OXYTOCA IS CLINICALLY INDICATED, PLEASE CONTACT THE MICROBIOLOGY LABORATORY ([phone]) WITHIN 3 DAYS OF THIS REPORT. Unless otherwise specified, testing performed by [facility] [employer] [address] [place] [address] 36 Microbiology results SOURCE [facility]U FINAL RESULT [...] 40 03/15/13 LAB.[email or web address] Deleted by [facility] 41 CULTURE TO FOLLOW 42 FIRST [...] RECOMMENDED FOR EARLY DETECTION OF . 47 [employer]. [place] [address] GYNECOLOGIC CYTOLOGY REPORT Accession Number: [id number] Source of Specimen(s): A: SurePath Vaginal/ Cervical/ [...] 08/04/2011 Electronically Signed Out By Salima MOJICA(ASCP) [facility] dss Unless otherwise specified, testing performed by [facility] [address] [place] [id number] 48 Microbiology results SOURCE [facility]U RESULT No growth 49 This sample is drawn by:[employer] RUBELLA INTERPRETATION: NEGATIVE <10.0 IU/ML BORDERLINE 10.0 - 14.9 IU/ML POSITIVE > OR=15.0 IU/ML VALUES OF 15.0 IU/ML OR GREATER INDICATE IMMUNIZATION OR PAST INFECTION. BORDERLINE RESULTS ARE CONFIRMED. THE MAGNITUDE OF THE REPORTED IGG LEVEL CANNOT BE CORRELATED TO AN ENDPOINT TITER. Unless otherwise specified, testing performed by [facility] [place] [address] 51 MEASLES INTERPRETATION: NEGATIVE <0.50 ELFA UNITS BORDERLINE 0.50 - 0.69 ELFA UNITS LOW LEVEL 0.70 - 1.90 ELFA UNITS MED. LEVEL 1.91 - 2.70 ELFA UNITS HIGH LEVEL >2.70 ELFA UNITS VALUES OF 0.70 OR GREATER INDICATE IMMUNIZATION OR PAST INFECTION. BORDERLINE RESULTS ARE CONFIRMED IN DUPLICATE. Unless otherwise specified, testing performed by [facility] [address] [place] [address] [address] [place] [address] [employer] Hybrid Capture II HPV Test Accession Number [id number] Specimen(s) Received A: [facility] SP Vaginal/ Cervical/ Endocervical Pap Smear - One Vial Other Case Numbers: [id number] Diagnosis RISK GROUPS HPV TYPES RESULTS High Risk (16, 18, 31, 33, 35, 39, 45, 51, 52, 56, 58, 59, 68) NEGATIVE Comments The performance characteristics of the SurePath cell pellet specimen tested for this assay were validated by [employer] and licensed for use by the [facility]. This test has not been licensed by the FDA and the result is not intended to be used as the sole means for clinical diagnosis or patient management. Negative results do not rule out the presence of disease. Reported: 10/05/2010 15:44 Electronically Signed Out By Jaimie Zarate ssa 53 Microbiology results SOURCE MIDU RESULT No Growth 54 [facility]. [address] [place] [address] GYNECOLOGIC CYTOLOGY REPORT Accession Number: [id number] Source of Specimen(s): A: SurePath Vaginal/ Cervical/ [...] 10/05/2010 Electronically Signed Out By Catarina MOJICA(ASCP) [facility] Unless otherwise specified, testing performed by [employer] [facility] [employer] [address] [place] [address] 55 Unless otherwise specified, testing performed by [employer]. [address] [place] [address] 56 SPECIMEN DESCRIPTION BUTTOCKS SPECIAL REQUESTS NONE GRAM STAIN MODERATE (10 TO 25/LPF) WHITE BLOOD CELLS NO EPITHELIAL CELLS MODERATE (5 TO 10/OIF) GRAM POSITIVE COCCI FEW (1 TO 5/OIF) GRAM NEGATIVE RODS CULTURE RESULTS NO GROWTH REPORT STATUS FINAL 04/27/2010 Unless otherwise specified, testing performed by [facility] [address] [facility] [address] [place] [address] Procedures Date Code Description Status 02/21/2018 76435 Physical Performance Test Or Measurement W/Report, Each 15 Completed Min 04/20/2015 98873 Measure Blood Oxygen Level Single Determination Completed 11/07/2013 68504 Measure Blood Oxygen Level Single Determination Completed 05/11/2011 57334 Destruction Benign Lesions Other Than Skin Tags Up To 14 Completed Lesions 05/01/2011 76657 Destruction Benign Lesions Other Than Skin Tags Up To 14 Completed Lesions 04/14/2011 28760 Destruction Benign Lesions Other Than Skin Tags Up To 14 Completed Lesions 04/04/2011 11771 Destruction Benign Lesions Other Than Skin Tags Up To 14 Completed Lesions 03/24/2011 38041 Destruction Benign Lesions Other Than Skin Tags Up To 14 Completed Lesions 04/25/2010 72919 I & D Pilonidal Cyst Simple Completed [...] Visit 08/01/2011 8:15a Pia Kevin, V72.31 Routine Crm Technical Lead N.P. Examination 788.1 Dysuria 789.9 Abdomen & Pelvis Symptoms Other V74.5 Screening Examination Venereal Disease Office Visit 03/20/2011 8:30a Pia Kevin, V20.2 Exam Infant Or N.P. Child Routine Health Check V74.1 Screening Examination Pulmonary Tuberculosis Office Visit 03/15/2011 3:15p Pia Kevin, 078.12 Plantar Wart N.P. Office Visit 09/30/2010 11:00a Pia Kevin, V20.2 Exam Infant Or N.P. Child Routine Health Check V72.31 Routine Crm Technical Lead Examination V74.5 Screening Examination Venereal Disease Office Visit 04/25/2010 10:30a Pia Kevin, 685.0 Pilonidal Cyst W/ N.P. Abscess Plan of Treatment Future Appointment(s):06/21/2018 8:30 am - Pia Brooke, N.P. at [id number] - Pia Brooke N.P.R07.89 Other chest painComments:reviewed ER report, EKG and CXR from 2 weeks ago and all normalsusoect non-cardiac origin of CPshe is to f/u labs and report worsening sympstry rinitadine as f/u 7-10 daysR50.9 Fever, unspecifiedComments:f/u labsAllNew Medication:Ranitidine HCL 150 mg - 1 by mouth twice a day
--- OUTSIDE RECORDS SUMMARY | 2018-06-28 18:07 | XMS REPORT | Continuity of Care Document ---
:1995 External Reference #:[id number] Author Name Pia Brooke N.P. Address [address] [place] [id number] Care Team Providers Name Role Phone Pia Brooke N.P. 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 Laborer Unavailable Payers Type Date Identification Numbers Payment Provider Subscriber Effective: 2016 Policy Number: [id number] [facility] Bridgett Spears PayID: [id number] [address] [place] [address] PayID: [id number] [facility] Bridgett Spears [address] [place] [address] Effective: 2014 Policy Number: [id number] Medicaid ### >11 Bridgett Spears Expires: 2016 PayID: [id number] [address] [place] [address] Advance Directives Description No Information Available Problems Date Description Provider Status Onset: 08/25/2016 Cyst of ovary Pia Brooke N.Misael Active Onset: 08/14/2017 Tobacco user Pia Brooke [place] Active Family History Date Family Member(s) Problem(s) Comments Father Good Health Mother Good Health Maternal Uncles pilonidal cyst remval Social History Type Date Description Comments Sex Unknown Lives With Boyfriend 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 shoulder pain dx: pain Norgestim-Eth 00/00/ Active Tablets 0.18/0.215 Unknown Estrad 0000 /0.25 [...] Note Hx no work Edwardo, 2013 - 11/07/13-5 Mashelle, for N.P. 2013 medical reasons Ibuprofen [...] Tablets 300-30mg 12tabs 1-2 po q [place], odeine #3 2011 - 4-6 hours Mashelle, [...] days Mashelle, 08/11/ N.P. 2011 School Note 03/24/ Hx patient Edwardo, 2010 - was seen [...] School Note 04/25/ Hx no sports Edwardo, 2010 - or gym for Mashelle, 09/30/ 2 weeks N.P. 2010 Medications Administered in Office Medication Date Status Form Strength Qnty SIG Indications Ordering Provider PPD Administered Injection Edwardo, 1 Jodie Palacio Immunizations CPT Code Status Date Vaccine Lot # [id number] Given 01/15/2018 Tdap (Adacel) Ages 7 And Above Only [id number] 15810 Given 01/15/2018 Tdap (Adacel) Ages 7 And Above Only 28792 Given 04/08/2014 Afluria Or Fluvirin Flu Vac Intramuscular [id number] 93907 Given 02/15/2007 Tdap (Adacel) Ages 7 And Above Only [id number] 97102 Given 02/15/2007 HPV Vaccine (Gardasil) 3 Dose Schedule [id number] 37656 Given 11/22/1998 IPV / Poliomyelitis Immunization 07345 Given 11/22/1998 MMR Virus Immunization 65253 Given 11/22/1998 DTP Immunization 65339 Given 02/04/1996 Hib ACTHiB Vaccine 4 Dose Schedule 46174 Given 02/04/1996 DTP Immunization 54493 Given 02/09/1995 Hepatitis B Vac Ped/Adolescent 3 Dose Schedule 38341 Given 02/03/1995 MMR Virus Immunization 67391 Given 1994 IPV / Poliomyelitis Immunization 47321 Given 1994 DTP Immunization 37636 Given 1994 Hib ACTHiB Vaccine 4 Dose Schedule 63196 Given 1994 Hepatitis B Vac Ped/Adolescent 3 Dose Schedule 88231 Given 1994 IPV / Poliomyelitis Immunization 94290 Given 1994 DTP Immunization 65213 Given 1994 Hib ACTHiB Vaccine 4 Dose Schedule 07144 Given 1994 Hepatitis B Vac Ped/Adolescent 3 Dose Schedule 93637 Given 1994 IPV / Poliomyelitis Immunization 96729 Given 1994 DTP Immunization 10135 Given 1994 Hib ACTHiB Vaccine 4 Dose Schedule 75645 Refused 04/21/2018 HPV Vaccine (Gardasil) 3 Dose Schedule 23594 Refused 04/21/2018 Influenza Vac, 3 Yrs & Older, Quadrivalent, Split, Im Use Vital Signs Date Vital Result Comment 05/30/2018 8:41am Body Temperature 99.1 F Weight [...] Magnesium 2.2 mg/dL 1.5-2.7 finding Protime 02/03/2018 [facility] Protime 15.6 seconds High 12.0-14.4 9 (315)- - Inr 1.2 High 0.9-1.1 10 Laboratory test 02/03/2018 [facility] Act Partial 27.0 seconds N 23.4-35.0 finding (315)- - Thrombo Time Aot Request 02/03/2018 [facility] Aot Request Test(s) added 11 (315)- - Tests to be added: crp Basic Metabolic Panel 02/03/2018 [facility] Glucose 130 mg/dL High 74-106 (315)- [...] 7.9 mg/dL Low 8.5-10.1 Laboratory test 02/03/2018 [facility] Magnesium 1.7 mg/ dL Low 1.8-2.4 finding (315)- - C-Reactive Protein,Quant 6.2 mg/L High <3.0 CBC 02/03/2018 [facility] White Blood Count 12.2 K/uL High [...] 11.6 fL N 8.9-12.4 Lactic Acid 02/02/2018 [facility] Lactic Acid 0.9 mmol/L N 0.4-1.9 (315)- - Lab Reflex >2.0 for Sepsis? Y Aot Request 02/02/2018 [facility] Aot Request Test(s) added 13 (315)- - Tests to be added: CRP Laboratory test 02/01/2018 [facility] Urine Culture NO GROWTH: 14 finding (315)- - FINAL <SEE NOTE> Urinalysis With 02/01/2018 [facility] Urine Color YELLOW Yellow 15 Microscopic (315)- - Urine Clarity SL CLOUDY Clear Urine Glucose - Dipstick NEGATIVE mg/dL Negative Urine Bilirubin - Dipstick NEGATIVE Negative Urine Ketone NEGATIVE mg/dL Negative Urine Specific [place] 1.025 N 1.010-1.030 Urine Blood NEGATIVE Negative [...] <SEE NOTE> 17 Laboratory test finding 02/01/2018 [facility] Lipase 207 U/L N 56-289 (315)- - HCG,Serum (Qualitative) NEGATIVE (Negative) 18 C-Reactive Protein,Quant < 2.9 mg/L <3.0 Comprehensive Metabolic 02/01/2018 [facility] Glucose 122 mg/dL High 74-106 [...] 52 U/L N 45-117 CBS W/Automated 02/01/2018 [facility] White Blood 11.6 K/ uL [...] 40.4-72.8 Lymph % 32.7 % N 20.0-42.0 Leslie % 6.5 % N 4.3-13.2 Eo% 1.6 % N 0.0-6.6 Bas% 0.3 % N 0.0-1.1 Neut# 6.83 K/uL N 1.8-7.0 Lymph # 3.79 K/uL N 1.0-4.0 Leslie # 0.75 K/uL N 0.3-0.9 Eos # 0.19 K/uL N 0.0-0.5 Baso # 0.03 K/uL N 0.0-0.1 CBS W/Automated Diff 08/06/2017 [facility] White Blood 7.2 K/uL N [...] 40.4-72.8 Lymph % 22.6 % N 20.0-42.0 Leslie % 6.7 % N 4.3-13.2 Eo% 1.5 % N 0.0-6.6 Bas% 0.3 % N 0.0-1.1 Neut# 4.93 K/uL N 1.8-7.0 Lymph # 1.62 K/uL N 1.0-4.0 Leslie # 0.48 K/uL N 0.3-0.9 Eos # 0.11 K/uL N 0.0-0.5 Baso # 0.02 K/uL N 0.0-0.1 Comprehensive Metabolic 08/06/2017 [facility] Glucose 93 mg/dL N 74-106 [...] U/L N 45-117 Laboratory test finding 08/06/2017 [facility] Lipase 163 U/L N 56-289 (315)- - HCG,Serum (Qualitative) NEGATIVE (Negative) 24 Urinalysis With 08/06/2017 [facility] Urine Color YELLOW Yellow Microscopic (315)- - Urine Clarity SL CLOUDY Clear Urine Glucose - Dipstick NEGATIVE mg/dL Negative Urine Bilirubin - Dipstick NEGATIVE Negative Urine Ketone NEGATIVE mg/dL Negative Urine Specific [place] >=1.030 N 1.010-1.030 Urine Blood NEGATIVE Negative [...] CAT <SEE NOTE> 26 Urine Culture 08/06/2017 [facility] Urine Culture URETHRAL JONELLE (315)- - Quantity [...] Lactoferrin,Fecal NEGATIVE (Neg) 32 Laboratory test 11/02/2015 [facility] Microbiology res 33 finding Culture <SEE NOTE> Urine HCG 07/24/2014 [facility] Urine HCG NEGATIVE Negative 34 (Qualitative) (315)- - (Qualitative ) Laboratory test 06/03/2013 [facility] Urine Microbiology res 35 finding Culture <SEE NOTE> Urine Culture 03/15/2013 [facility] Urine See Note 36 (315)- - Culture Urine Screen 03/15/2013 [facility] Urine Screen See Note 37 (315)- - Urine HCG 03/15/2013 [facility] Urine HCG NEGATIVE Negative 38 (Qualitative) (315)- - (Qualitative ) Urinalysis With 03/15/2013 [facility] Urine Color YELLOW Yellow Microscopic (315)- - Urine Clarity CLEAR Clear Urine Glucose - Dipstick NEGATIVE mg/dL Negative Urine Bilirubin - Dipstick NEGATIVE Negative Urine Ketone NEGATIVE mg/dL Negative Urine Specific [place] <=1.005 Low 1.010-1.030 Urine Blood TRACE Negative Urine PH 5.5 Low 6.5-7.5 Urine Protein - Dipstick NEGATIVE mg/dL Negative Urine Urobilinogen - Dipstick 0.2 E.U./dL 0.2-1.0 Urine Nitrite - Dipstick NEGATIVE Negative Urine Leuk Esterase MODERATE High Negative Urine RBC 0-2 rbc/hpf 0-7 Urine WBC 30-50 wbc/hpf High 0-7 Urine Epithelial Cells FEW NONESEEN/lpf Urine Bacteria FEW NONESEEN Laboratory test 03/15/2013 [facility] Culture If See Note 39 finding (315)- - Indicated Comment Laboratory test 01/09/2013 [facility] Urine Culture Microbiology res 40 finding <SEE NOTE> Laboratory test 08/13/2012 [facility] Urine Culture Microbiology res 41 finding <SEE NOTE> Liver Function 05/26/2012 [facility] Total Protein 7.0 g/ dL 6.3-8 Tests (315)- - .0 Albumin 3.7 g/dL 3.5-5.0 Globulin 3.3 g/dL 1.9-4.3 Alb/Glob 1.1 ratio Bilirubin,Total 0.2 mg/dL 0.2-1.2 Bilirubin,Direct < 0.1 mg/dL Low 0.1-0.4 Bilirubin,Indirect 0.1 mg/dL 0.0-0.9 Sgot/Ast 10 U/L Low 16-40 SGPT/Alt 18 U/L Low 30-65 Alkaline Phosphatase 67 U/L 50-136 Basic Metabolic Panel 05/26/2012 [facility] Glucose 98 mg /dL 76-115 (315)- - BUN 12 mg/dL 5-23 Creatinine 0.9 mg/dL 0.5-1.4 Glom Filtration Rate, Estimate >60 mL/min >60 If >60 mL/min >60 42 BUN/Creat 13.3 ratio Sodium 142 mmol/L 136-145 Potassium 3.6 mmol/L 3.5-5.1 Chloride 110 mmol/L High 98-107 Carbon Dioxide 24 mEq/L 18-29 Anion Gap 12 mEq/L 8-16 Calcium 9.0 mg/dL 8.5-10.1 Laboratory test 05/26/2012 [facility] Lipase 123 U/L 28-380 finding (315)- - CBC W/Automated 05/26/2012 [facility] White Blood 7.8 K/ uL 3.1-10.7 [...] High 28.0-68.0 Lymph % 23.9 % 17.0-46.1 Leslie % 5.8 % 4.3-13.2 Eo% 1.4 % 0.0-6.6 Bas% 0.3 % 0.0-1.1 Neut# 5.37 K/uL 1.0-7.0 Lymph # 1.87 K/uL 0.8-3.4 Leslie # 0.45 K/uL 0.0-0.6 Eos # 0.11 K/uL 0.0-0.5 Baso # 0.02 K/uL 0.0-0.1 Laboratory test 05/26/2012 [facility] Urine HCG NEGATIVE Negative 43 finding (315)- - (Qualitative) Urine Screen 05/26/2012 [facility] Urine Color YELLOW Yellow (315)- - Urine Clarity CLEAR Clear Urine Glucose - Dipstick NEGATIVE mg/dL Negative Urine Bilirubin - Dipstick NEGATIVE Negative Urine Ketone NEGATIVE mg/dL Negative Urine Specific [place] 1.010 1.010-1.030 Urine Blood NEGATIVE Negative Urine [...] ELFA 48 finding Laboratory test 09/30/2010 [facility] 49 finding [phone] Allia <SEE NOTE> Affirm 09/30/2010 [facility] Trichomonas [...] Use) Wound Culture - (SEE NOTE) 53 [facility] [place] [address] [phone] Specimen Description - LA N/A Special Requests - LA N/A Result - LA N/A Report Status - LA N/A 1 This sample is drawn by:dayna/executive chairman of the board 2 Microbiology results SOURCE Random urine FINAL RESULT No growth 3 This sample is drawn by:ss/duncan 4 Updated reference range on new analyzer [...] CLINICALLY INDICATED, PLEASE CONTACT THE MICROBIOLOGY LABORATORY ([phone]) WITHIN 3 DAYS OF THIS REPORT. Unless otherwise specified, testing performed by [facility] [address] [place] [id number] 29 SPECIMEN DESCRIPTION STOOL SPECIAL REQUESTS NONE RESULT NEGATIVE FOR GIARDIA ANTIGEN BY IMMUNOASSAY NEGATIVE FOR CRYPTOSPORIDIUM ANTIGEN BY IMMUNOAS SAY REPORT STATUS FINAL 08/29/2016 Unless otherwise specified, testing performed by [facility] [address] [place] [address] 30 SPECIMEN DESCRIPTION STOOL SPECIAL REQUESTS NONE [...] 08/29/2016 Unless otherwise specified, testing performed by [facility] [address] [place] [address] 31 SPECIMEN DESCRIPTION STOOL SPECIAL REQUESTS NONE [...] 08/29/2016 Unless otherwise specified, testing performed by [facility] [address] [place] [address] 32 PERFORMED AT [facility] [employer] [place] [address] Unless otherwise specified, testing performed by [facility] [address] [place] [address] 33 Microbiology results SOURCE MIDU FINAL RESULT [...] 37 03/15/13 LAB.[email or web address] Deleted by [facility] FIRST MORNING SPECIMENS GENERALLY CONTAIN THE [...] RECOMMENDED FOR EARLY DETECTION OF . [address] [facility] [employer] [place] [address] GYNECOLOGIC CYTOLOGY REPORT Accession Number: [id number] Source of Specimen(s): A: SurePath Vaginal/ Cervical/ [...] 08/04/2011 Electronically Signed Out By Salima MOJICA(ASCP) [facility] dss Unless otherwise specified, testing performed by [facility] [place] [address] 45 Microbiology results SOURCE MIDU RESULT No growth 46 This sample is drawn by:KD/ACCOUNT ADJUSTER 47 RUBELLA INTERPRETATION: NEGATIVE <10.0 IU/ML BORDERLINE 10.0 - 14.9 IU/ML POSITIVE > OR=15.0 IU/ML VALUES OF 15.0 IU/ML OR GREATER INDICATE IMMUNIZATION OR PAST INFECTION. BORDERLINE RESULTS ARE CONFIRMED. THE MAGNITUDE OF THE REPORTED IGG LEVEL CANNOT BE CORRELATED TO AN ENDPOINT TITER. Unless otherwise specified, testing performed by [facility] [place] [address] 48 MEASLES INTERPRETATION: NEGATIVE <0.50 ELFA UNITS BORDERLINE 0.50 - 0.69 ELFA UNITS LOW LEVEL 0.70 - 1.90 ELFA UNITS MED. LEVEL 1.91 - 2.70 ELFA UNITS HIGH LEVEL >2.70 ELFA UNITS VALUES OF 0.70 OR GREATER INDICATE IMMUNIZATION OR PAST INFECTION. BORDERLINE RESULTS ARE CONFIRMED IN DUPLICATE. Unless otherwise specified, testing performed by [facility] [employer] [facility], [place] [address] [address] [place] [address] [employer] Hybrid Capture II HPV Test Accession Number [id number] Specimen(s) Received A: [facility] SP Vaginal/ Cervical/ Endocervical Pap Smear - One Vial Other Case Numbers: [id number] Diagnosis RISK GROUPS HPV TYPES RESULTS High Risk (16, 18, 31, 33, 35, 39, 45, 51, 52, 56, 58, 59, 68) NEGATIVE Comments The performance characteristics of the SurePath cell pellet specimen tested for this assay were validated by [employer] and licensed for use by the [facility]. This test has not been licensed by the FDA and the result is not intended to be used as the sole means for clinical diagnosis or patient management. Negative results do not rule out the presence of disease. Reported: 10/05/2010 15:44 Electronically Signed Out By Jaimie Zarate ssa 50 Microbiology results SOURCE MIDU RESULT No Growth 51 [facility]. [address] [place] [address] GYNECOLOGIC CYTOLOGY REPORT Accession Number: [id number] Source of Specimen(s): A: SurePath Vaginal/ Cervical/ [...] 10/05/2010 Electronically Signed Out By Catarina MOJICA(ASCP) [facility] [place] Unless otherwise specified, testing performed by [facility] [facility] [address] [place] [address] 52 Unless otherwise specified, testing performed by [employer] [facility]. [address] [place] [address] 53 SPECIMEN DESCRIPTION BUTTOCKS SPECIAL REQUESTS NONE GRAM STAIN MODERATE (10 TO 25/LPF) WHITE BLOOD CELLS NO EPITHELIAL CELLS MODERATE (5 TO 10/OIF) GRAM POSITIVE COCCI FEW (1 TO 5/OIF) GRAM NEGATIVE RODS CULTURE RESULTS NO GROWTH REPORT STATUS FINAL 04/27/2010 Unless otherwise specified, testing performed by [facility] [address] [place] [address] Procedures Date Code Description Status 02/21/2018 24127 Physical Performance Test Or Measurement W/Report, Each 15 Completed Min 04/20/2015 87150 Measure Blood Oxygen Level Single Determination Completed 11/07/2013 27281 Measure Blood Oxygen Level Single Determination Completed 05/11/2011 90767 Destruction Benign Lesions Other Than Skin Tags Up To 14 Completed Lesions 05/01/2011 75658 Destruction Benign Lesions Other Than Skin Tags Up To 14 Completed Lesions 04/14/2011 95033 Destruction Benign Lesions Other Than Skin Tags Up To 14 Completed Lesions 04/04/2011 26494 Destruction Benign Lesions Other Than Skin Tags Up To 14 Completed Lesions 03/24/2011 87245 Destruction Benign Lesions Other Than Skin Tags Up To 14 Completed Lesions 04/25/2010 85335 I & D Pilonidal Cyst Simple Completed Encounters Type Date Location Provider Dx Diagnosis Office Visit 05/27/2018 11:30a Pia Kevin, N.P. [...] Gibson Brooke, V04.81 Need For Prophylactic 11:00a Pia, N.P. Vaccination & Inoculation/Influenza 611.79 Breast Signs & Symptoms Other Office Visit 11/07/2013 10:30a Pia Kevin, N.P. 466.0 Bronchitis Acute 786.2 Cough Office Visit [...] Visit 08/01/2011 8:15a Pia Kevin, V72.31 Routine Perch Mender N.P. Examination 788.1 Dysuria 789.9 Abdomen & Pelvis Symptoms Other V74.5 Screening Examination Venereal Disease Office Visit 03/20/2011 8:30a Pia Kevin, V20.2 Exam Infant Or N.P. Child Routine Health Check V74.1 Screening Examination Pulmonary Tuberculosis Office Visit 03/15/2011 3:15p Pia Kevin, 078.12 Plantar Wart N.P. Office Visit 09/30/2010 11:00a Pia Kevin, V20.2 Exam Infant Or N.P. Child Routine Health Check V72.31 Routine Perch Mender Examination V74.5 Screening Examination Venereal Disease Office Visit 04/25/2010 10:30a Pia Kevin, 685.0 Pilonidal Cyst W/ N.P. Abscess Plan of Treatment Future Appointment(s):06/21/2018 8:30 am - Pia Brooke N.P. at [id number] - Pia Brooke N.P.M54.2 CervicalgiaComments:use muscle relaxer as rx'd fro con care, warm heat ROM execises, start PT and recheck 3 weeks or sooner if worseningAllNew Medication:Physical Therapy - evaluate and treat neck and shoulder pain dx: pain
--- NOTE | 2018-06-28 19:11 | UC ---
Cardiac HPI - HPI Summary HPI Summary: Pt c/o left upper chest pain and burning that radiated to left upper back. X 2 months. Pt has been seen at [facility], ER and pcp. Pt is currently being treated for GERD with ranitidine. - History of Current Complaint Chief Complaint: UCChestPain Stated Complaint: LEFT SIDE BREAST PAIN Time Seen by Provider: 06/28/18 19:02 Hx Obtained From: Patient Hx Last Menstrual Period: 06/19/18 d/c' BCP 05/27/18 Onset/Duration: Sudden Onset, Lasting Days, Still Present Timing: Constant Initial Severity: Mild Current Severity: Mild Pain Intensity: 1 Chest Pain Location: Left Anterior Character: Burning Aggravating Factor(s): Nothing Alleviating Factor(s): Other - application of ice Associated Signs & Symptoms: Positive: Negative - Risk Factors Pulmonary Embolism Risk Factors: Negative Cardiac Risk Factors: Negative Atrial Fibrillation: Negative TAD Risk Factors: Negative - Allergy/Home Medications Allergies/Adverse Reactions: Allergies Allergy/AdvReac Type Severity Reaction Status Date / Time No Known Allergies Allergy Verified 06/28/18 17:34 Home Medications: Home Medications Ibuprofen TAB* [Motrin TAB* 600 MG] 400 mg PO Q8H PRN MDD 3 06/28/18 [History Confirmed 06/28/18] Multivitamins/Minerals TAB* [Theragran/minerals TAB*] 1 tab PO DAILY 06/28/18 [ History Confirmed 06/28/18] Ranitidine TAB (NF) [Zantac TAB (NF)] 150 mg PO BID 06/28/18 [History Confirmed 06/28/18] PMH/Surg Hx/FS Hx/Imm Hx Previously Healthy: Yes - Surgical History Surgical History: Yes Surgery Procedure, Year, and Place: LT KNEE - TORN MENISCUS 2012, REMOVED CYST FROM [facility] - Family History Known Family History: Positive: None - Pt denies FMHX Negative: Renal Disease, Respiratory Disease, Seizure Disorder - Social History Occupation: Employed Full-time Lives: With Family Alcohol Use: Occasionally Substance Use Type: None Smoking Status (MU): Light Every Day Tobacco Smoker Type: Cigarettes Amount Used/How Often: 1/2 PK DAILY Have You Smoked in the Last Year: Yes - Immunization History Vaccination Up to Date: Yes Review of Systems All Other Systems Reviewed And Are Negative: Yes Constitutional: Positive: Negative Skin: Positive: Negative Eyes: Positive: Negative ENT: Positive: Negative Respiratory: Positive: Negative Cardiovascular: Positive: Chest Pain Gastrointestinal: Positive: Negative Genitourinary: Positive: Negative Motor: Positive: Negative Neurovascular: Positive: Negative Musculoskeletal: Positive: Myalgia - left upper anterior chest Neurological: Positive: Negative Psychological: Positive: Negative Is Patient Immunocompromised?: No Physical Exam Triage Information Reviewed: Yes Appearance: Well-Appearing Vital Signs: Initial Vital Signs Temp 98.8 F 06/28/18 17:29 Pulse 108 06/28/18 17:29 Resp 14 06/28/18 17:29 BP 132/84 06/28/18 17:29 Pulse Ox 100 06/28/18 17:29 Vital Signs Reviewed: Yes Eye Exam: Normal ENT Exam: Normal Dental Exam: Normal Neck exam: Normal Respiratory Exam: Normal Cardiovascular Exam: Normal Pelvic Exam: Positive: Other - left breast exam. scattered fibrodense moveable masses. No masses palpated in left axilla or upper, outer breast tissue. no nipple discharge, no dimpling of skin, no wounds or open sores. Musculoskeletal Exam: Normal Neurological Exam: Normal Psychological Exam: Normal Skin Exam: Normal - Differential Diagnoses - Chest Pain Differential Diagnosis/HQI/PQRI: Chest Wall - Clinical Impression Provider Diagnosis: Breast pain, left, Dense breast tissue Discharge - Sign-Out/Discharge Documenting (check all that apply): Patient Departure All imaging exams completed and their final reports reviewed: No Studies - Discharge Plan Condition: Stable Disposition: HOME Patient Education Materials: Chest Pain (ED) Referrals: Pia Brooke NP [Primary Care Provider] - As Soon As Possible - Billing Disposition and Condition Condition: STABLE Disposition: Home
== END 2018-06-28 19:17 | disposition home or self-care (01) ==
LOC: UCCORT 17:04
DX: N64.4 Mastodynia (principal); R92.2 Inconclusive mammogram; F17.210 Nicotine dependence, cigarettes, uncomplicated
CPT/HCPCS: 93005; 99211; G0463